=== PATIENT | male | born 1990 | race African-American/Black ===

== ENCOUNTER 2019-04-09 04:03 | Emergency (ER) | payer SELFPAY ==
[~2019-04-09] VITALS: Ht 180.3 cm; Wt 65.8 kg
--- OUTSIDE RECORDS SUMMARY | 2019-04-09 04:06 | XMS REPORT | Summary of Care ---
Author Author [facility] Organization [facility] Address Unknown Phone Unavailable Care Team Providers Care Agent Broker Name Role Phone Laurel Hemphill PCP Encounter HQ Scarlettr_shila(FIN) [phone] Date(s): 03/17/19 - 03/17/19 [facility] [address] [place] [address]- Discharge Disposition: Home or Self Care Attending Physician: Physician, Non Associated MD Admitting Physician: Physician, Non Associated MD Vital Signs No data available for this section Problem List Condition Effective Dates Status Health Status Informant Bipolar Active disorder(Confirmed) Genital Active herpes(Confirmed) HIV Active disease(Confirmed) Hyperlipidemia(Confi Active rmed) Hypertension(Confirm Active ed) Insomnia(Confirmed) Active Allergies, Adverse Reactions, Alerts No Known Medication Allergies Medications No data available for this section Results Most recent to 1 oldest [Reference Range]: Lipase Lvl [[id number] unit/L unit/L] *LOW* (03/17/19 6:41 PM) Immunizations Given and Recorded Vaccine Date Status Refusal Reason Hx influenza vaccine-unspecified 04/01/17 Recorded Procedures Procedure Date Related Diagnosis Body Site Status Carpal tunnel decompression1 2012 Completed 1both hands Social History Social History Type Response Substance Abuse Use: None. Exercise Exercise duration: 0. Employment/School Status: Employed. 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 Alcohol Current, Type Liquor. Frequency: Daily. Last use: 12/26/18. Smoking Status Never smoker; Exposure to Tobacco Smoke None; Cigarette Smoking Last 365 Days No; Reg Smoking Cessation Counseling No entered on: 01/03/19 Assessment and Plan No data available for this section
--- OUTSIDE RECORDS SUMMARY | 2019-04-09 04:06 | XMS REPORT | Summary of Care ---
Author Author [facility] Organization [facility] Address Unknown Phone Unavailable Encounter HQ Joann(PATRICIA) [id number] Date(s): 01/03/19 - 01/06/19 [facility] [address] [place] [address]- [facility] [phone] Discharge Disposition: Home or Self Care Attending Physician: Emili Mott MD Admitting Physician: Emili Mott MD Vital Signs 1 2 3 Most recent to oldest [Reference Range]: 180.34 cm (01/03/19 3:21 PM) 180.34 cm (01/03/19 7:51 AM) Height 98.1 DegF (01/06/19 3:59 PM) 98.5 DegF (01/06/19 12:08 PM) 98.2 DegF (01/06/19 7:34 AM) Temperature Oral [96.4-99.1 DegF] 133/83 mmHg (01/06/19 3:59 PM) 151/96 mmHg *HI* (01/06/19 12:08 PM) 144/90 mmHg *HI* (01/06/19 7:34 AM) Blood Pressure [90-140/60-90 mmHg] 17 BRMIN (01/06/19 3:59 PM) 17 BRMIN (01/06/19 12:08 PM) 16 BRMIN (01/06/19 7:44 AM) Respiratory Rate [14-20 BRMIN] 86 bpm (01/06/19 3:59 PM) 95 bpm (01/06/19 12:08 PM) 93 bpm (01/06/19 7:34 AM) Peripheral Pulse Rate [60-100 bpm] 66.932 kg (01/03/19 3:21 PM) 64.091 kg (01/03/19 7:51 AM) Weight 20.58 m2 (01/03/19 3:21 PM) 19.71 m2 (01/03/19 7:51 AM) Body Mass Index Problem List Condition Effective Dates Status Health Status Informant Bipolar Active disorder(Confirmed) Genital Active herpes(Confirmed) HIV Active disease(Confirmed) Hyperlipidemia(Confi Active rmed) Hypertension(Confirm Active ed) Insomnia(Confirmed) Active Allergies, Adverse Reactions, Alerts No Known Medication Allergies Medications acetaminophen 650 mg, 2 tab, Route: PO, Drug form: TAB, Q4H, Dosing Weight 64.091, kg, PRN Sheila n 1-3/Temp > 100.4 F, Start date: 01/03/19 13:41:00 CDT, Duration: 30 day, Stop date: 02/02/19 13:40:00 CDT Notes: Do not exceed 4 gm/day. (Same as: Tylenol) Start Date: 01/03/19 Stop Date: 01/06/19 Status: Discontinued Ambien 5 mg, 1 tab, Route: PO, Drug form: TAB, ONCE, Dosing Weight 66.932, kg, Start da te: 01/03/19 22:50:00 CDT, Stop date: 01/03/19 22:50:00 CDT Notes: (Same As: Ambien) Start Date: 01/03/19 Stop Date: 01/03/19 Status: Completed Ambien 10 mg oral tablet 10 mg=1 tab, PO, Bedtime, 0 Refill(s) Start Date: 01/03/19 Status: Ordered Bentyl 20 mg=1 cap, PO, QID, PRN Abdominal cramping, # 40 cap, 0 Refill(s) Start Date: 01/03/19 Stop Date: 01/06/19 Status: Discontinued calcium gluconate + Sodium Chloride 0.9% IV 70 mL 3 gm, 30 mL, Route: IVPB, PRN, Dosing Weight 64.091, kg, PRN Abnormal Lab Result , For NON-ICU Patients Only., Start date: 01/03/19 13:43:00 CDT, Duration: 30 da y, Stop date: 02/02/19 13:42:00 CDT Notes: WASTE: F/P - Sink; E - Municipal Trash Bin Start Date: 01/03/19 Stop Date: 01/06/19 Status: Discontinued calcium gluconate + Sodium Chloride 0.9% IV 80 mL 2 gm, 20 mL, Route: IVPB, PRN, Dosing Weight 64.091, kg, PRN Abnormal Lab Result , For NON-ICU Patients Only., Start date: 01/03/19 13:43:00 CDT, Duration: 30 da y, Stop date: 02/02/19 13:42:00 CDT Notes: WASTE: F/P - Sink; E - Municipal Trash Bin Start Date: 01/03/19 Stop Date: 01/06/19 Status: Discontinued ciprofloxacin 400 mg, 200 mL, Route: IVPB, Drug form: INJ, [id number], Dosing Weight 64.091, kg, Start date: 01/03/19 14:00:00 CDT, Duration: 10 day, Stop date: 01/13/19 2:00:00 CDT, ABX Indication: Intra-abdominal Infection Notes: Do not refrigerate Start Date: 01/03/19 Stop Date: 01/04/19 Status: Discontinued Dextrose 50% Syringe 12.5 gm, 25 mL, Route: IVP, Drug Form: INJ, Dosing Weight 64.091, kg, PRN, PRN B lood Glucose Results, Start date: 01/03/19 13:41:00 CDT, Duration: 30 day, Stop date: 02/02/19 13:40:00 CDT Start Date: 01/03/19 Stop Date: 01/06/19 Status: Discontinued Dextrose 50% Syringe 25 gm, 50 mL, Route: IVP, Drug Form: INJ, Dosing Weight 64.091, kg, PRN, PRN Blo od Glucose Results, Start date: 01/03/19 13:41:00 CDT, Duration: 30 day, Stop da te: 02/02/19 13:40:00 CDT Start Date: 01/03/19 Stop Date: 01/06/19 Status: Discontinued Dilaudid 0.5 mg, 0.5 mL, Route: IVP, Drug form: INJ, ONCE, Dosing Weight 66.932, kg, Prio rity: STAT, Start date: 01/03/19 20:14:00 CDT, Stop date: 01/03/19 20:14:00 CDT Notes: Same as: Dilaudid Start Date: 01/03/19 Stop Date: 01/03/19 Status: Completed Dilaudid 0.3 mg, 0.3 mL, Route: IVP, Drug form: INJ, Q4H, Dosing Weight 66.932, kg, PRN P ain Score 6-10, Start date: 01/04/19 0:54:00 CDT, Duration: 30 day, Stop date: 02/03/19 0:53:00 CDT Notes: Same as: Dilaudid Start Date: 01/04/19 Stop Date: 01/04/19 Status: Discontinued Dilaudid 0.5 mg, Route: IVP, ONCE, Dosing Weight 64.091, kg, Priority: STAT, Start date: 01/03/19 11:00:00 CDT, Stop date: 01/03/19 11:00:00 CDT Start Date: 01/03/19 Stop Date: 01/03/19 Status: Completed Dilaudid 1 mg, 1 mL, Route: IVP, Drug form: SOLN, Q4H, Dosing Weight 66.932, kg, PRN Pain Score 6-10, Start date: 01/04/19 9:51:00 CDT, Duration: 30 day, Stop date: 01/17 9:50:00 CDT Notes: (Same as: Dilaudid) Start Date: 01/04/19 Stop Date: 01/06/19 Status: Discontinued DuoNeb inhalation solution 3 ml, Route: NEB, Drug Form: SOLN, Dosing Weight 64.091, kg, PRN, PRN Respirator y Protocol, Start date: 01/03/19 13:41:00 CDT, Duration: 30 day, Stop date: 12/18 13:40:00 CDT Notes: (Same as: Duoneb) Start Date: 01/03/19 Stop Date: 01/06/19 Status: Discontinued Flagyl 500 mg, 100 mL, Route: IVPB, Drug form: INJ, [id number], Dosing Weight 64.091, kg, S tart date: 01/03/19 15:00:00 CDT, Duration: 10 day, Stop date: 01/13/19 7:00:00 CDT, ABX Indication: Intra-abdominal Infection Notes: (Same as: Flagyl) Avoid alcohol. Start Date: 01/03/19 Stop Date: 01/04/19 Status: Discontinued Genvoya 150 mg-150 mg-200 mg-10 mg oral tablet 1 tab, Route: PO, Drug Form: TAB, Dosing Weight 66.932, kg, Daily, Start date: 0 01/04/19 9:00:00 CDT, Duration: 30 day, Stop date: 02/02/19 9:00:00 CDT Start Date: 01/04/19 Stop Date: 01/03/19 Status: Deleted Genvoya 150/150/200/10mg pt's own med Genvoya 150/150/200/10mg pt's own med, 1 tablet, Drug form: MISC, Route: PO, Malissa ly, 01/04/19 9:00:00 CDT, Duration: 30 day, Stop date: 02/02/19 9:00:00 CDT Start Date: 01/04/19 Stop Date: 01/06/19 Status: Discontinued glucagon 1 mg, Route: IM, Drug form: PDR/INJ, PRN, Dosing Weight 64.091, kg, PRN Blood Gl ucose Results, Start date: 01/03/19 13:41:00 CDT, Duration: 30 day, Stop date: 0 02/02/19 13:40:00 CDT Start Date: 01/03/19 Stop Date: 01/06/19 Status: Discontinued hydrALAZINE 10 mg, 0.5 mL, Route: IVP, Drug form: INJ, Q6H, Dosing Weight 66.932, kg, PRN, S tart date: 01/03/19 16:11:00 CDT, Duration: 30 day, Stop date: 02/02/19 16:10:00 CDT, for HTN, SBP > 180 or DBP > 110 Notes: (Same as: Apresoline)Push over 5 minutes Start Date: 01/03/19 Stop Date: 01/06/19 Status: Discontinued Lactated Ringers IV 1,000 mL 1,000 mL, Rate: 125 ml/hr, Infuse over: 8 hr, Route: IV, Dosing Weight 66.932 kg , Total Volume: 1,000, Start date: 01/03/19 13:41:00 CDT, Duration: 30 day, Stop date: 02/02/19 13:40:00 CDT, 1.83, m2 Start Date: 01/03/19 Stop Date: 01/06/19 Status: Discontinued lisinopril 10 mg, 1 tab, Route: PO, Drug form: TAB, Daily, Dosing Weight 66.932, kg, Start date: 01/03/19 17:25:00 CDT, Duration: 30 day, Stop date: 02/02/19 9:00:00 CDT Notes: (Same as: Prinivlowell Zestril) Start Date: 01/03/19 Stop Date: 01/04/19 Status: Discontinued lisinopril 20 mg, 1 tab, Route: PO, Drug form: TAB, Daily, Dosing Weight 66.932, kg, Start date: 01/05/19 9:00:00 CDT, Duration: 30 day, Stop date: 02/03/19 9:00:00 CDT Notes: (Same as: Prinivil Zestril) Start Date: 01/05/19 Stop Date: 01/06/19 Status: Discontinued lisinopril 10 mg, PO, Daily, 0 Refill(s) Start Date: 01/03/19 Status: Ordered magnesium oxide 800 mg, 2 tab, Route: PO, Drug form: TAB, PRN, Dosing Weight 64.091, kg, PRN Abn ormal Lab Result, For NON-ICU Patients Only., Start date: 01/03/19 13:43:00 CDT, Duration: 30 day, Stop date: 02/02/19 13:42:00 CDT Notes: (Same as: Mag-Ox 400)Magnesium oxide 267oz=121uc elemental magnesiumDose= ____mg magnesium oxide (___mg elemental magnesium) Start Date: 01/03/19 Stop Date: 01/06/19 Status: Discontinued magnesium sulfate 2 gm, 50 mL, Route: IVPB, Drug form: INJ, PRN, Dosing Weight 64.091, kg, PRN Abn ormal Lab Result, For NON-ICU Patients Only., Start date: 01/03/19 13:43:00 CDT, Duration: 30 day, Stop date: 02/02/19 13:42:00 CDT Notes: WASTE: F/P - Sink; E - Municipal Trash Bin Start Date: 01/03/19 Stop Date: 01/06/19 Status: Discontinued magnesium sulfate 1 gm, 100 mL, Route: IVPB, Drug form: INJ, PRN, Dosing Weight 64.091, kg, PRN Ab normal Lab Result, For NON-ICU Patients Only., Start date: 01/03/19 13:43:00 CDT , Duration: 30 day, Stop date: 02/02/19 13:42:00 CDT Notes: WASTE: F/P - Sink; E - Municipal Trash Bin Start Date: 01/03/19 Stop Date: 01/06/19 Status: Discontinued meropenem 500 mg, Route: IVPB, Drug form: PDR/INJ, ABXQ6H, Dosing Weight 66.932, kg, CrCL >=50ml/min, Extended infusion, infuse over 3 hours, Start date: 01/04/19 16:00:00 CDT, Duration: 10 day, Stop date: 01/14/19 10:00:00 CDT, ABX Indication: Intra-abdomina... Start Date: 01/04/19 Stop Date: 01/04/19 Status: Canceled morphine Sulfate 2 mg, 1 mL, Route: IVP, Drug form: SOLN, Q4H, Dosing Weight 64.091, kg, PRN Pain Score 7-10, Start date: 01/03/19 16:11:00 CDT, Duration: 30 day, Stop date: 12/18 16:10:00 CDT, .. Start Date: 01/03/19 Stop Date: 01/04/19 Status: Discontinued morphine Sulfate 2 mg, 1 mL, Route: IVP, Drug form: SOLN, Q6H, Dosing Weight 64.091, kg, PRN Pain Score 7-10, Start date: 01/03/19 13:42:00 CDT, Duration: 30 day, Stop date: 12/18 13:41:00 CDT, .. Start Date: 01/03/19 Stop Date: 01/03/19 Status: Discontinued morphine Sulfate 4 mg, Route: IVP, ONCE, Dosing Weight 64.091, kg, Priority: STAT, Start date: 9:02:00 CDT, Stop date: 01/03/19 9:02:00 CDT Start Date: 01/03/19 Stop Date: 01/03/19 Status: Completed Ray 5/325 oral tablet 2 tab, Route: PO, Drug Form: TAB, Dosing Weight 66.932, kg, Q6H, PRN Pain Score 4-6, Start date: 01/06/19 12:00:00 CDT, Duration: 30 day, Stop date: 02/05/19 11 :59:00 CDT Notes: (Same as: Ray 325/5) Do not exceed 4gm/day of acetaminophen. Start Date: 01/06/19 Stop Date: 01/06/19 Status: Discontinued Ray 5/325 oral tablet 1 tab, Route: PO, Drug Form: TAB, Dosing Weight 66.932, kg, Q6H, PRN Pain Score 4-6, Start date: 01/04/19 9:44:00 CDT, Duration: 30 day, Stop date: 02/03/19 9:4 3:00 CDT Notes: (Same as: Ray 325/5) Do not exceed 4gm/day of acetaminophen. Start Date: 01/04/19 Stop Date: 01/06/19 Status: Discontinued NS (Bolus) IV 1,000 mL, 2,000 ml/hr, Infuse Over: 0.5 hr, Route: IV, ONCE, Priority: STAT, Dos ing Weight 64.091 kg, Start date: 01/03/19 9:03:00 CDT, Stop date: 01/03/19 9:03 :00 CDT Start Date: 01/03/19 Stop Date: 01/03/19 Status: Completed ondansetron 4 mg, 2 mL, Route: IVP, Drug form: INJ, Q8H, Dosing Weight 64.091, kg, PRN Nause a & Vomiting, Start date: 01/03/19 13:41:00 CDT, Duration: 30 day, Stop date: 02/02/19 13:40:00 CDT Notes: (Same as: Kaye) MEDICATION WASTE Product Size: 4 mgProduct Was carlos: ___ mg Start Date: 01/03/19 Stop Date: 01/06/19 Status: Discontinued potassium chloride 20 mEq, 1 tab, Route: PO, Drug form: ERTAB, PRN, Dosing Weight 64.091, kg, PRN A bnormal Lab Result, For NON-ICU Patients Only, Start date: 01/03/19 13:43:00 CDT , Duration: 30 day, Stop date: 02/02/19 13:42:00 CDT Notes: (Same as: K-Dur 20)"Do Not Crush" Give with food and full glass of water For patients unable to swallow tablet, dissolve in one half glass of water. Allo w about 2 minutes for the tablets to disintegrate. Stir before giving to prepare slurry and administer.Please exclude Patients with feeding tube less than 14 Ukrainian (Dobhoff, J-tube etc) and pediatric and patients. Start Date: 01/03/19 Stop Date: 01/06/19 Status: Discontinued potassium chloride 20 mEq, 15 mL, Route: NJ, Drug form: LIQ, PRN, Dosing Weight 64.091, kg, PRN Abn ormal Lab Result, For NON-ICU Patients Only, Start date: 01/03/19 13:43:00 CDT, Duration: 30 day, Stop date: 02/02/19 13:42:00 CDT Notes: (Same as: Potassium Chloride) Start Date: 01/03/19 Stop Date: 01/06/19 Status: Discontinued potassium chloride 10 mEq, 100 mL, Route: IVPB, Drug form: INJ, PRN, Dosing Weight 64.091, kg, PRN Abnormal Lab Result, For NON-ICU Patients Only, Start date: 01/03/19 13:43:00 CD T, Duration: 30 day, Stop date: 02/02/19 13:42:00 CDT Notes: Infuse at a rate of 10 mEq/hr.(Same as: KCL) Start Date: 01/03/19 Stop Date: 01/06/19 Status: Discontinued potassium chloride 10 mEq, 100 mL, Route: IVPB, Drug form: INJ, Q1H, Dosing Weight 66.932, kg, Tota l Dose=60 meq, Start date: 01/04/19 6:00:00 CDT, Duration: 6 doses or times, Sto p date: 01/04/19 11:00:00 CDT, Peripheral Line Notes: Infuse at a rate of 10 mEq/hr.(Same as: KCL) Start Date: 01/04/19 Stop Date: 01/04/19 Status: Completed potassium phosphate + Sodium Chloride 0.9% IV 240 mL 30 mmol, 10 mL, Route: IVPB, PRN, Dosing Weight 64.091, kg, PRN Abnormal Lab Res ult, For NON-ICU Patients Only., Start date: 01/03/19 13:43:00 CDT, Duration: 30 day, Stop date: 02/02/19 13:42:00 CDT Notes: (Same as: K Phosphate.)Do not infuse phosphorous concurrently in the same line as TPN or IVF that contains calcium. For double lumen central lines, phosp horous may be infused in a separate lumen from TPN. 1 mMol phoshate has 1.47 mE q potassium Infuse over 4 hours Start Date: 01/03/19 Stop Date: 01/06/19 Status: Discontinued potassium phosphate + Sodium Chloride 0.9% IV 245 mL 15 mmol, 5 mL, Route: IVPB, PRN, Dosing Weight 64.091, kg, PRN Abnormal Lab Resu lt, For NON-ICU Patients Only., Start date: 01/03/19 13:43:00 CDT, Duration: 30 day, Stop date: 02/02/19 13:42:00 CDT Notes: (Same as: K Phosphate.)Do not infuse phosphorous concurrently in the same line as TPN or IVF that contains calcium. For double lumen central lines, phosp horous may be infused in a separate lumen from TPN. 1 mMol phoshate has 1.47 mE q potassium Infuse over 4 hours Start Date: 01/03/19 Stop Date: 01/06/19 Status: Discontinued potassium phosphate-sodium phosphate 250 mg-280 mg-160 mg oral powder for recons titution 2 pkt, Route: PO, Drug Form: PDR/REC, Dosing Weight 64.091, kg, PRN, PRN Abnorma l Lab Result, For NON-ICU Patients Only, Start date: 01/03/19 13:43:00 CDT, Dura tion: 30 day, Stop date: 02/02/19 13:42:00 CDT Notes: (Same as: Phos-NaK) Each 1.5 gm pkt has 250mg phosphorous. Mix w/2.5oz w ater and stir. Start Date: 01/03/19 Stop Date: 01/06/19 Status: Discontinued Reglan 10 mg, Route: IVP, Drug form: INJ, ONCE, Dosing Weight 64.091, kg, Priority: STA T, Start date: 01/03/19 10:46:00 CDT, Stop date: 01/03/19 10:46:00 CDT Start Date: 01/03/19 Stop Date: 01/03/19 Status: Completed Saline Flush 0.9% 10 mL, Route: IVP, Drug Form: INJ, Dosing Weight 64.091, kg, PRN, PRN Line Flush , Start date: 01/03/19 8:24:00 CDT, Duration: 30 day, Stop date: 02/02/19 8:23:0 0 CDT Notes: preservative free. Start Date: 01/03/19 Stop Date: 01/06/19 Status: Discontinued SEROquel 25 mg, 1 tab, Route: PO, Drug form: TAB, BID, Dosing Weight 66.932, kg, Start da te: 01/03/19 17:00:00 CDT, Duration: 30 day, Stop date: 02/02/19 9:00:00 CDT Notes: (Same as: SEROquel) Start Date: 01/03/19 Stop Date: 01/06/19 Status: Discontinued SEROquel 25 mg oral tablet 25 mg=1 tab, PO, BID, 0 Refill(s) Start Date: 01/03/19 Status: Ordered sodium phosphate + Dextrose 5% in Water IV 240 mL 30 mmol, 10 mL, Route: IVPB, PRN, Dosing Weight 64.091, kg, PRN Abnormal Lab Res ult, For NON-ICU Patients Only., Start date: 01/03/19 13:43:00 CDT, Duration: 30 day, Stop date: 02/02/19 13:42:00 CDT Notes: Infuse over 4 hour. Do not infuse phosphorous concurrently in the same li ne as TPN or IVF that contains calcium. For double lumen central lines, phosphor ous may be infused in a separate lumen from TPN. Start Date: 01/03/19 Stop Date: 01/06/19 Status: Discontinued sodium phosphate + Dextrose 5% in Water IV 245 mL 15 mmol, 5 mL, Route: IVPB, PRN, Dosing Weight 64.091, kg, PRN Abnormal Lab Resu lt, For NON-ICU Patients Only., Start date: 01/03/19 13:43:00 CDT, Duration: 30 day, Stop date: 02/02/19 13:42:00 CDT Notes: Infuse over 4 hour. Do not infuse phosphorous concurrently in the same li ne as TPN or IVF that contains calcium. For double lumen central lines, phosphor ous may be infused in a separate lumen from TPN. Start Date: 01/03/19 Stop Date: 01/06/19 Status: Discontinued tramadol 50 mg oral tablet 50 mg, 1 tab, Route: PO, Drug form: TAB, Q6H, Dosing Weight 64.091, kg, PRN Pain Score 4-6, Start date: 01/03/19 13:42:00 CDT, Duration: 30 day, Stop date: 12/18 13:41:00 CDT Notes: Not to exceed 400mg/day. (Same As: Ultram) Start Date: 01/03/19 Stop Date: 01/06/19 Status: Discontinued tramadol 50 mg oral tablet 50 mg, 1 tab, Route: PO, Drug form: TAB, Q6H, Dosing Weight 66.932, kg, Start da te: 01/04/19 12:00:00 CDT, Duration: 30 day, Stop date: 02/03/19 6:00:00 CDT Start Date: 01/04/19 Stop Date: 01/04/19 Status: Canceled Tylenol with Codeine #3 oral tablet 1 tab, PO, Q6H, PRN Pain, X 7 day, # 28 tab, 0 Refill(s) Start Date: 01/06/19 Stop Date: 01/13/19 Status: Ordered Zofran 4 mg, Route: IVP, Drug form: INJ, ONCE, Dosing Weight 64.091, kg, Priority: STAT , Start date: 01/03/19 9:03:00 CDT, Stop date: 01/03/19 9:03:00 CDT Start Date: 01/03/19 Stop Date: 01/03/19 Status: Completed Results 1 2 3 Most recent to oldest [Reference Range]: 2.5 K/CMM (01/06/19 3:19 AM) 4.2 K/CMM (01/05/19 3:33 AM) 4.8 K/CMM (01/04/19 3:41 AM) Neutrophils # [1.5-8.1 K/CMM] 1.0 K/CMM (01/06/19 3:19 AM) 0.9 K/CMM *LOW* (01/05/19 3:33 AM) 0.9 K/CMM *LOW* (01/04/19 3:41 AM) Lymphocytes # [1.0-5.5 K/CMM] 0.9 K/CMM *HI* (01/06/19 3:19 AM) 1.0 K/CMM *HI* (01/05/19 3:33 AM) 1.0 K/CMM *HI* (01/04/19 3:41 AM) Monocytes # [0.0-0.8 K/CMM] 0.1 K/CMM (01/03/19 8:43 AM) Eosinophils # [0.0-0.5 K/CMM] 148 mL/min/1.73m2 1 *NA* (01/06/19 3:19 AM) 151 mL/min/1.73m2 2 *NA* (01/05/19 3:33 AM) 147 mL/min/1.73m2 3 *NA* (01/04/19 3:41 AM) eGFR 0.7 (01/03/19 8:43 AM) A/G Ratio [0.7-1.6] 3.2 g/dL *LOW* (01/03/19 8:43 AM) Albumin Lvl [3.5-5.0 g/dL] 40 unit/L (01/03/19 8:43 AM) Alk Phos [39-136 unit/L] 22 unit/L (01/03/19 8:43 AM) ALT [0-65 unit/L] 12.4 mEq/L (01/06/19 3:19 AM) 11.6 mEq/L (01/05/19 3:33 AM) 12.9 mEq/L (01/04/19 3:41 AM) AGAP [10.0-20.0 mEq/L] 34 unit/L (01/03/19 8:43 AM) AST [0-37 unit/L] 4 *LOW* (01/03/19 8:43 AM) B/C Ratio [6-25] 1.0 % (01/06/19 3:19 AM) 0.3 % (01/05/19 3:33 AM) 0.2 % (01/04/19 3:41 AM) Basophils [0.0-1.0 %] 4 mg/dL *LOW* (01/06/19 3:19 AM) 4 mg/dL *LOW* (01/05/19 3:33 AM) 2 mg/dL *LOW* (01/04/19 3:41 AM) BUN [7-22 mg/dL] 9.0 mg/dL (01/06/19 3:19 AM) 9.0 mg/dL (01/05/19 3:33 AM) 8.6 mg/dL (01/04/19 3:41 AM) Calcium Lvl [8.5-10.5 mg/dL] 104 mEq/L (01/06/19 3:19 AM) 102 mEq/L (01/05/19 3:33 AM) 103 mEq/L (01/04/19 3:41 AM) Chloride Lvl [95-109 mEq/L] 29 mEq/L (01/06/19 3:19 AM) 30 mEq/L (01/05/19 3:33 AM) 29 mEq/L (01/04/19 3:41 AM) CO2 [24-32 mEq/L] 0.72 mg/dL (01/06/19 3:19 AM) 0.68 mg/dL (01/05/19 3:33 AM) 0.72 mg/dL (01/04/19 3:41 AM) Creatinine Lvl [0.50-1.40 mg/dL] 0.9 % (01/06/19 3:19 AM) 0.5 % (01/05/19 3:33 AM) 0.7 % (01/04/19 3:41 AM) Eosinophils [0.0-4.0 %] 4.8 g/dL *HI* (01/03/19 8:43 AM) Globulin [2.7-4.2 g/dL] 62 mg/dL *LOW* (01/06/19 3:19 AM) 92 mg/dL (01/05/19 3:33 AM) 87 mg/dL (01/04/19 3:41 AM) Glucose Lvl [70-99 mg/dL] 34.5 % *LOW* (01/06/19 3:19 AM) 33.2 % *LOW* (01/05/19 3:33 AM) 31.6 % *LOW* (01/04/19 3:41 AM) Hct [42.0-54.0 %] 12.0 g/dL *LOW* (01/06/19 3:19 AM) 11.9 g/dL *LOW* (01/05/19 3:33 AM) 11.2 g/dL *LOW* (01/04/19 3:41 AM) Hgb [14.0-18.0 g/dL] 3.4 mEq/L *LOW* (01/06/19 3:19 AM) 3.6 mEq/L (01/05/19 3:33 AM) 3.3 mEq/L *LOW* (01/04/19 7:47 PM) Potassium Lvl [3.5-5.1 mEq/L] 1.0 mMol/L (01/03/19 8:43 AM) Lactic Acid Lvl [0.5-2.2 mMol/L] 166 unit/L (01/03/19 8:43 AM) Lipase Lvl [73-393 unit/L] 23.2 % (01/06/19 3:19 AM) 14.9 % *LOW* (01/05/19 3:33 AM) 13.2 % *LOW* (01/04/19 3:41 AM) Lymphocytes [20.0-40.0 %] 32.1 pg *HI* (01/06/19 3:19 AM) 32.6 pg *HI* (01/05/19 3:33 AM) 32.2 pg *HI* (01/04/19 3:41 AM) MCH [27.0-31.0 pg] 34.9 g/dL (01/06/19 3:19 AM) 35.7 g/dL (01/05/19 3:33 AM) 35.3 g/dL (01/04/19 3:41 AM) MCHC [32.0-36.0 g/dL] 92.0 fL (01/06/19 3:19 AM) 91.3 fL (01/05/19 3:33 AM) 91.3 fL (01/04/19 3:41 AM) MCV [80.0-94.0 fL] 1.9 mg/dL (01/06/19 3:19 AM) 1.9 mg/dL (01/05/19 3:33 AM) 1.9 mg/dL (01/04/19 3:41 AM) Magnesium Lvl [1.8-2.4 mg/dL] 19.6 % *HI* (01/06/19 3:19 AM) 15.9 % *HI* (01/05/19 3:33 AM) 14.5 % *HI* (01/04/19 3:41 AM) Monocytes [2.0-12.0 %] 6.8 fL *LOW* (01/06/19 3:19 AM) 6.7 fL *LOW* (01/05/19 3:33 AM) 6.6 fL *LOW* (01/04/19 3:41 AM) MPV [7.4-10.4 fL] 142 mEq/L (01/06/19 3:19 AM) 140 mEq/L (01/05/19 3:33 AM) 142 mEq/L (01/04/19 3:41 AM) Sodium Lvl [135-145 mEq/L] 786 K/CMM *HI* (01/06/19 3:19 AM) 655 K/CMM *HI* (01/05/19 3:33 AM) 523 K/CMM *HI* (01/04/19 3:41 AM) Platelet [133-450 K/CMM] 55.3 % (01/06/19 3:19 AM) 68.4 % (01/05/19 3:33 AM) 71.4 % (01/04/19 3:41 AM) Segs [45.0-75.0 %] 8.0 g/dL (01/03/19 8:43 AM) Total Protein [6.4-8.4 g/dL] 3.75 M/CMM *LOW* (01/06/19 3:19 AM) 3.64 M/CMM *LOW* (01/05/19 3:33 AM) 3.46 M/CMM *LOW* (01/04/19 3:41 AM) RBC [4.70-6.10 M/CMM] 13.9 % (01/06/19 3:19 AM) 13.7 % (01/05/19 3:33 AM) 13.9 % (01/04/19 3:41 AM) RDW [11.5-14.5 %] 0.6 mg/dL (01/03/19 8:43 AM) Bili Total [0.2-1.3 mg/dL] 0.03 ng/mL (01/03/19 8:43 AM) Troponin-I [0.00-0.40 ng/mL] Occasional /HPF *NA* (01/03/19 8:43 AM) UA Bacteria [None Seen /HPF] Negative *NA* (01/03/19 8:43 AM) UA Bili [Negative] Negative (01/03/19 8:43 AM) UA Blood [Negative] STRAW *NA* (01/03/19 8:43 AM) UA Color Negative mg/dL *NA* (01/03/19 8:43 AM) UA Glucose [Negative mg/dL] Trace mg/dL *ABN* (01/03/19 8:43 AM) UA Ketones [Negative mg/dL] Negative (01/03/19 8:43 AM) UA Leuk Est [Negative] Negative (01/03/19 8:43 AM) UA Nitrite [Negative] 8.0 (01/03/19 8:43 AM) UA pH [5.0-8.0] Negative mg/dL (01/03/19 8:43 AM) UA Protein [Negative mg/dL] 1 /HPF (01/03/19 8:43 AM) UA RBC [0-2 /HPF] 1.003 (01/03/19 8:43 AM) UA Spec Grav [<=1.030] Occasional /LPF *NA* (01/03/19 8:43 AM) UA Sq Epi [Few /LPF] Clear (01/03/19 8:43 AM) UA Turbidity [Clear] <=1.0 mg/dL *NA* (01/03/19 8:43 AM) UA Urobilinogen [0.1-1.0 mg/dL] <1 /HPF (01/03/19 8:43 AM) UA WBC [0-5 /HPF] 4.5 K/CMM (01/06/19 3:19 AM) 6.2 K/CMM (01/05/19 3:33 AM) 6.7 K/CMM (01/04/19 3:41 AM) WBC [3.7-10.4 K/CMM] 1Result Comment: The eGFR is calculated using the CKD-EPI formula. In most young, healthy individuals the eGFR will be >90 mL/min/1.73m2. The eGFR declines with age. An eGFR of 60-89 may be normal in some populations, particularly the elderly, for whom the CKD-EPI formula has not been extensively validated. Use of the eGFR is not recommended in the following populations: Individuals with unstable creatinine concentrations, including patients and those with serious co-morbid conditions. Patients with extremes in muscle mass or diet. The data above are obtained from the [employer] ( [employer]) which additionally recommends that when the eGFR is used in patients with extremes of body mass index for purposes of drug dosing, the eGFR should be mul tiplied by the estimated BMI. 2Result Comment: The eGFR is calculated using the CKD-EPI formula. In most young, healthy individuals the eGFR will be >90 mL/min/1.73m2. The eGFR declines with age. An eGFR of 60-89 may be normal in some populations, particularly the elderly, for whom the CKD-EPI formula has not been extensively validated. Use of the eGFR is not recommended in the following populations: Individuals with unstable creatinine concentrations, including patients and those with serious co-morbid conditions. Patients with extremes in muscle mass or diet. The data above are obtained from the [employer] ( [employer]) which additionally recommends that when the eGFR is used in patients with extremes of body mass index for purposes of drug dosing, the eGFR should be mul tiplied by the estimated BMI. 3Result Comment: The eGFR is calculated using the CKD-EPI formula. In most young, healthy individuals the eGFR will be >90 mL/min/1.73m2. The eGFR declines with age. An eGFR of 60-89 may be normal in some populations, particularly the elderly, for whom the CKD-EPI formula has not been extensively validated. Use of the eGFR is not recommended in the following populations: Individuals with unstable creatinine concentrations, including patients and those with serious co-morbid conditions. Patients with extremes in muscle mass or diet. The data above are obtained from the National Kidney Disease Education Program ( NKDEP) which additionally recommends that when the eGFR is used in patients with extremes of body mass index for purposes of drug dosing, the eGFR should be mul tiplied by the estimated BMI. Immunizations Given and Recorded Vaccine Date Status Refusal Reason Hx influenza vaccine-unspecified 04/01/17 Recorded Procedures Procedure Date Related Diagnosis Body Site Status Carpal tunnel decompression2012 Completed 1both hands Social History Social History Type Response Substance Abuse Use: None. Exercise Exercise duration: 0. Employment/School Status: Employed. Work/School description: assisted administator. Alcohol Current, Type Liquor. Frequency: Daily. Last use: 12/26/18. Smoking Status Never smoker; Exposure to Tobacco Smoke None; Cigarette Smoking Last 365 Days No; Reg Smoking Cessation Counseling No entered on: 01/03/19 Assessment and Plan Extracted from: Title: Discharge Summary * Author: Emili Mott MD Date: 01/06/19 Discharge Plan Discharge Summary Plan Discharge Status: stable. Discharge instructions given: to patient. Discharge disposition: discharge to home self care. Prescriptions: continue same medications, written and given to patient. Diagnosis Acute hypokalemia (MHG70-DZ E87.6, Working, Medical). Alcohol induced acute pancreatitis with uninfected necrosis (WGB46-MQ K85.21, Working, Medical). Anemia of chronic disease (KNE15-BF D63.8, Working, Medical). HIV disease (JXS94-WB B20, Working, Medical). Pancreatic necrosis (KEB04-IM K86.89, Working, Medical). Course Improving. Education and Follow-up Counseled: patient. Extracted from: Title: [facility] Progress Note * Author: Emili Mott MD Date: 01/06/19 Impression and Plan Assessment: Acute pancreatitis likely secondary to alcohol use Possible pancreatic neck necrosis History of HIV Hypertension History of alcohol abuse Hypokalemia Plan: Continue soft diet IV fluid hydration PRN pain medications PRN antiemetics Continue home HIV medications No need for antibiotics for possible pancreatic necrosis as per ID recommendations ID consult appreciated GI consultation appreciated DVT prophylaxis: Heparin subcutaneous Disposition: Continue current management follow clinical course; possible discharge the next day or so Extracted from: Title: Clinical Document Author: Kenny Sunshine MD Date: 01/03/19 INFECTIOUS DISEASES CONSULTATION NOTE Kenny Sunshine M.D. Attending: Kenny Aguilar MDPhone: Service: Internal Medicine Code status: Full Code Reason for Admission: ALCOHOL INDUCED ACUTE PANCREATITIS WITH UNINFECTED NECR Working DRG: Isolation: No Isolation/Standard Precautions Consulting Physicians: Felix Peng MDOffice: Service: Gastroenterology Kenny Sunshine MDOffice: Service: Infectious Disease HPI: 28-year-old -Honduran with known past medical history significant for HIV as well as alcoholic pancreatitis who presented to [facility] with ongoing pain he was recently admitted at [facility]. He was just discharged from the hospital recently further work-up in the ER showed a temp of 98.8 and diffuse abdominal pain more towards the right side. Creatinine was 0.75 white count 6.7 lactic acid 1.0 urinalysis was negative diagnostic studies so far CT abdomen and pelvis showed findings consistent with acute pancreatitis without organized drainable fluid poorly circumscribed hypodensity is seen within the pancreatic head and body which could represent pancreatic necrosis. Trace ascites. Infectious disease consultation was called in to give recommendation. PAST MEDICAL HISTORY: HIV pancreatitis. SURGICAL HISTORY: Carpal tunnel decompression: 2013 FAMILY HISTORY: Father: Hypertension Mother: Hypertension Grandparent (Maternal Grandmother): Hypertension Allergies (1) ActiveReaction No Known Medication AllergiesNone documented SOCIAL HISTORY: Employment/School Details: Status: Employed. Work/School description: assisted administator. Alcohol Details: Current, Type Liquor. Frequency: Daily. Last use: 12/26/18. Exercise Details: Exercise duration: 0. Tobacco Details: Use: Never smoker. Tobacco smoke exposure: None. Did the Patient Smoke Cigarettes Anytime During the Last 365 Days? No. Cessation Counseling Provided? No. Substance Abuse Details: Use: None. ROS: GENERAL: No change in appetite, energy or weight. No fever, chills or sweats. HEENT: No auditory or visual complaints. No tinnitus. No pharyngeal complaints RESPIRATORY: [place], SOB. CARDIOVASCULAR: No chest pain or pressure. No palpitations GASTROINTESTINAL: Abdominal pain. heartburn, diarrhea or constipation. No nausea or vomiting. MUSCULOSKELETAL: No myalgias, arthralgias, joint swelling. NEUROLOGICAL: No vertigo or disturbance of balance or coordination.No motor or sensory complaints. No headache. GENITOURINARY: No dysuria, urgency or urinary frequency. No incontinence. DERMATOLOGIC: No complaint of skin lesions or rashes. No change MEDICATIONS: Scheduled Meds (5): 01/03/19 QUEtiapine (SEROquel) 25 mg PO BID 01/03/19 ciprofloxacin 400 mg IVPB [id number] 200 ml/hr 01/03/19 lisinopril 10 mg PO Daily 01/03/19 metroNIDAZOLE (Flagyl) 500 mg IVPB [id number] 200 ml/hr 01/04/19 non-formulary (Genvoya 150/150/200/10mg pt's own med) PO Daily VITAL SIGNS: VitalsTmp(F)[id number] 01/03 22:[id number]--- 01/03 20:31 21% 01/03 19:[id number]--- 01/03 15:[id number]--- 01/03 15:47 00610 21% 24 Hr Tmax: 98.8F (37.11c) at 01/03 22:40Vital Signs are the last 5 in the past 48 hours. PHYSICAL EXAMINATION: GENERAL: Well-developed, well-nourished in no apparent distress. SKIN: Warm and dry with good color. No rash. No tissue breakdown, bleeding or bruising. HEENT: Head is normocephalic and atraumatic. PERRLA, EOMI, NECK: Supple. No carotid bruits. No lymphadenopathy or thyromegaly. CHEST: Symmetrical with equal expansion. LUNGS: CTA HEART: RRR, no murmurs. . GASTROINTESTINAL: Bowel sounds positive. Abdominal pain right upper quadrant pain positive epigastric pain. EXTREMITIES: No edema or varicosities. Pulses 2+ symmetric. LABS: Labs (Last four charted values) WBC 6.7(JANUARY 03) Hgb L 11.6(JANUARY 03) Hct L 32.4(JANUARY 03) Plt 394(JANUARY 03) Na 140(JANUARY 03) K L 3.4(JANUARY 03) CO2 29(JANUARY 03) Cl 104(JANUARY 03) Cr 0.75(JANUARY 03) BUN L 3(JANUARY 03) Glucose Random 92(JANUARY 03) Ca 8.7(JANUARY 03) Troponin 0.03(JANUARY 03) CULTURES: DATE/SOURCE/RESULT/ SENSITIVITIES: IMAGING: ASSESSMENT AND PLAN: 28-year-old gentleman with 1. Pancreatitis. 2. Suspected pancreatic necrosis. 3. HIV. 4. Seizure disorder. RECOMMENDATIONS: As per infectious disease standpoint patient seen and evaluated. Currently patient is n.p.o. initiated on IV fluids. Continue aggressive hydration Resume HIV medication. We will continue to follow closely. We will continue to follow. Thank you for providing me the opportunity to take care of this patient. Extracted from: Title: History and Physical Author: Kenny Aguilar MD Date: 01/03/19 Assessment: Acute pancreatitis Concern for pancreatic necrosis versus abscess HIV Hypertension Alcohol abuse Hypokalemia Plan: Continue with aggressive IV fluid hydration at least today and then we will follow-up with gastroenterology recommendations. NPO status. CT scan noted with a concerning finding of possible abscess. Likely local complication of his acute pancreatitis. Involve infectious disease for that reason. Counseled extensively regarding alcohol abuse. Patient's last drink was around 8 days ago, will monitor for possible alcohol withdrawal however it has been more than a week. Discussed his HIV medications with infectious disease and gastroenterology as well for a possibility of September induced pancreatitis? Pain control as needed Antiemetics as needed Medication reconciliation DVT prophylaxis: Heparin subcutaneous Disposition: Likely 2 midnights or more
--- OUTSIDE RECORDS SUMMARY | 2019-04-09 04:06 | XMS REPORT | Summary of Care ---
Author Author [facility] Organization [facility] Address Unknown Phone Unavailable Encounter HQ Joann(FIN) [id number] Date(s): 11/27/18 - 11/27/18 [facility] [address] [place] [address]- [phone] Encounter Diagnosis Acute psychosis (resolved) (Discharge Diagnosis) - 11/27/18 Discharge Disposition: Home or Self Care Attending Physician: Kaur Gold MD Vital Signs 1 2 3 Most recent to oldest [Reference Range]: 172.72 cm (11/27/18 2:40 AM) Height 98.2 DegF (11/27/18 7:22 PM) 98 DegF (11/27/18 3:38 PM) 98 DegF (11/27/18 1:36 PM) Temperature Oral [96.4-99.1 DegF] 156/82 mmHg *HI* (11/27/18 7:22 PM) 144/72 mmHg *HI* (11/27/18 3:38 PM) 136/78 mmHg (11/27/18 1:36 PM) Blood Pressure [90-140/60-90 mmHg] 18 BRMIN (11/27/18 7:22 PM) 19 BRMIN (11/27/18 3:38 PM) 18 BRMIN (11/27/18 1:36 PM) Respiratory Rate [14-20 BRMIN] 102 bpm *HI* (11/27/18 7:03 AM) 92 bpm (11/27/18 2:40 AM) Peripheral Pulse Rate [60-100 bpm] 70.455 kg (11/27/18 2:40 AM) Weight 23.62 m2 (11/27/18 2:40 AM) Body Mass Index Problem List Condition Effective Dates Status Health Status Informant Bipolar Active disorder(Confirmed) Genital Active herpes(Confirmed) HIV Active disease(Confirmed) Hyperlipidemia(Confi Active rmed) Hypertension(Confirm Active ed) Insomnia(Confirmed) Active Allergies, Adverse Reactions, Alerts Substance Reaction Severity Status NKDA Active Medications Ativan 2 mg, Route: IVP, Drug form: INJ, ONCE, Dosing Weight 70.455, kg, Priority: STAT , Start date: 11/27/18 6:57:00 CDT, Stop date: 11/27/18 6:57:00 CDT Start Date: 11/27/18 Stop Date: 11/27/18 Status: Completed Benadryl 50 mg, 1 mL, Route: IVP, Drug form: INJ, ONCE, Dosing Weight 70.455, kg, Priorit y: STAT, Start date: 11/27/18 8:13:00 CDT, Stop date: 11/27/18 8:13:00 CDT Notes: (Same as: Benadryl) Start Date: 11/27/18 Stop Date: 11/27/18 Status: Completed Bentyl 20 mg oral tablet 20 mg=1 tab, PO, QID, PRN abdominal pain, # 20 tab, 0 Refill(s) Start Date: 11/27/18 Status: Ordered Geodon 10 mg, Route: IM, ONCE, Dosing Weight 70.455, kg, Priority: STAT, Start date: 6:04:00 CDT, Stop date: 11/27/18 6:04:00 CDT Start Date: 11/27/18 Stop Date: 11/27/18 Status: Completed Geodon 10 mg, Route: IM, ONCE, Dosing Weight 70.455, kg, Priority: STAT, Start date: 5:23:00 CDT, Stop date: 11/27/18 5:23:00 CDT Start Date: 11/27/18 Stop Date: 11/27/18 Status: Completed Haldol 5 mg, Route: IM, ONCE, Dosing Weight 70.455, kg, Priority: STAT, Start date: 4:38:00 CDT, Stop date: 11/27/18 4:38:00 CDT Start Date: 11/27/18 Stop Date: 11/27/18 Status: Completed SEROquel 25 mg oral tablet 25 mg=1 tab, PO, BID, # 20 tab, 0 Refill(s) Start Date: 11/27/18 Status: Ordered Results ELECTROLYTES Most recent to 1 oldest [Reference Range]: Sodium Lvl [135-145 139 mEq/L mEq/L] (11/27/18 3:55 AM) Potassium Lvl 3.4 mEq/L [3.5-5.1 mEq/L] *LOW* (11/27/18 3:55 AM) Chloride Lvl [95-109 99 mEq/L mEq/L] (11/27/18 3:55 AM) CO2 [24-32 mEq/L] 31 mEq/L (11/27/18 3:55 AM) AGAP [10.0-20.0 12.4 mEq/L mEq/L] (11/27/18 3:55 AM) CHEM PANEL Most recent to 1 oldest [Reference Range]: Creatinine Lvl 1.12 mg/dL [0.50-1.40 mg/dL] (11/27/18 3:55 AM) eGFR 104 mL/min/1.73m2 1 *NA* (11/27/18 3:55 AM) BUN [7-22 mg/dL] 15 mg/dL (11/27/18 3:55 AM) B/C Ratio [6-25] 13 (11/27/18 3:55 AM) Glucose Lvl [70-99 127 mg/dL mg/dL] *HI* (11/27/18 3:55 AM) Total Protein 9.2 g/dL [6.4-8.4 g/dL] *HI* (11/27/18 3:55 AM) Albumin Lvl [3.5-5.0 4.9 g/dL g/dL] (11/27/18 3:55 AM) Globulin [2.7-4.2 4.3 g/dL g/dL] *HI* (11/27/18 3:55 AM) A/G Ratio [0.7-1.6] 1.1 (11/27/18 3:55 AM) Calcium Lvl 9.5 mg/dL [8.5-10.5 mg/dL] (11/27/18 3:55 AM) ALT [0-65 unit/L] 18 unit/L (11/27/18 3:55 AM) AST [0-37 unit/L] 15 unit/L (11/27/18 3:55 AM) Alk Phos [39-136 55 unit/L unit/L] (11/27/18 3:55 AM) Bili Total [0.2-1.3 0.4 mg/dL mg/dL] (11/27/18 3:55 AM) 1Result Comment: The eGFR is calculated using [...] be mul tiplied by the estimated BMI. CARDIAC ENZYMES Most recent to 1 oldest [Reference Range]: Total CK [12-191 139 unit/L unit/L] (11/27/18 3:55 AM) Troponin-I <0.02 ng/mL [0.00-0.40 ng/mL] (11/27/18 3:55 AM) DRUG SCREEN Most recent to 1 oldest [Reference Range]: U Amph Scr Negative [Negative] *NA* (11/27/18 4:19 AM) U Tanya Scr Positive [Negative] *ABN* (11/27/18 4:19 AM) U Benzodiaz Scr Negative [Negative] *NA* (11/27/18 4:19 AM) U Cannab Scr Negative [Negative] *NA* (11/27/18 4:19 AM) U Cocaine Scr Negative [Negative] *NA* (11/27/18 4:19 AM) U Opiate Scr Positive [Negative] *ABN* (11/27/18 4:19 AM) U Phencyclidine Scr Negative [Negative] *NA* (11/27/18 4:19 AM) UDS Note See Note (11/27/18 4:19 AM) TOXICOLOGY Most recent to 1 oldest [Reference Range]: Acetaminoph Lvl <2 [10-20] (11/27/18 3:55 AM) Salicylate Lvl <1.7 mg/dL [0.0-30.0 mg/dL] (11/27/18 3:55 AM) Etoh (%) <.003 % *NA* (11/27/18 3:55 AM) Ethanol Lvl <3 mg/dL *NA* (11/27/18 3:55 AM) URINE AND STOOL Most recent to 1 oldest [Reference Range]: UA Turbidity [Clear] Clear (11/27/18 4:19 AM) UA Color [Yellow] Yellow *NA* (11/27/18 4:19 AM) UA pH [5.0-8.0] 5.0 (11/27/18 4:19 AM) UA Spec Grav 1.018 [<=1.030] (11/27/18 4:19 AM) UA Glucose Negative [Negative] *NA* (11/27/18 4:19 AM) UA Blood [Negative] Moderate *ABN* (11/27/18 4:19 AM) UA Ketones Negative *NA* (11/27/18 4:19 AM) UA Protein Negative [Negative] (11/27/18 4:19 AM) UA Urobilinogen <=1.0 mg/dL [0.1-1.0 mg/dL] *NA* (11/27/18 4:19 AM) UA Bili [Negative] Negative *NA* (11/27/18 4:19 AM) UA Leuk Est Negative [Negative] (11/27/18 4:19 AM) UA Nitrite Negative [Negative] (11/27/18 4:19 AM) UA WBC [0-5 /HPF] 2 /HPF (11/27/18 4:19 AM) UA RBC [0-2 /HPF] <1 /HPF (11/27/18 4:19 AM) UA Sq Epi [Few] None Seen (11/27/18 4:19 AM) UA Hyal Cast [0-2 12 /LPF /LPF] *HI* (11/27/18 4:19 AM) UA Mucus [None Seen Few /LPF /LPF] *NA* (11/27/18 4:19 AM) HEMATOLOGY Most recent to 1 oldest [Reference Range]: WBC [3.7-10.4 K/CMM] 8.1 K/CMM (11/27/18 3:55 AM) RBC [4.70-6.10 4.79 M/CMM M/CMM] (11/27/18 3:55 AM) Hgb [14.0-18.0 g/dL] 15.3 g/dL (11/27/18 3:55 AM) Hct [42.0-54.0 %] 45.0 % (11/27/18 3:55 AM) MCV [80.0-94.0 fL] 94.0 fL (11/27/18 3:55 AM) MCH [27.0-31.0 pg] 32.0 pg *HI* (11/27/18 3:55 AM) MCHC [32.0-36.0 34.1 g/dL g/dL] (11/27/18 3:55 AM) RDW [11.5-14.5 %] 13.1 % (11/27/18 3:55 AM) MPV [7.4-10.4 fL] 6.8 fL *LOW* (11/27/18 3:55 AM) Platelet [133-450 338 K/CMM K/CMM] (11/27/18 3:55 AM) Segs [45.0-75.0 %] 82.7 % *HI* (11/27/18 3:55 AM) Lymphocytes 9.7 % [20.0-40.0 %] *LOW* (11/27/18 3:55 AM) Monocytes [2.0-12.0 7.3 % %] (11/27/18 3:55 AM) Eosinophils [0.0-4.0 0.1 % %] (11/27/18 3:55 AM) Basophils [0.0-1.0 0.2 % %] (11/27/18 3:55 AM) Neutrophils # 6.7 K/CMM [1.5-8.1 K/CMM] (11/27/18 3:55 AM) Lymphocytes # 0.8 K/CMM [1.0-5.5 K/CMM] *LOW* (11/27/18 3:55 AM) Monocytes # [0.0-0.8 0.6 K/CMM K/CMM] (11/27/18 3:55 AM) Immunizations Given and Recorded Vaccine Date Status Refusal Reason Hx influenza vaccine-unspecified 04/01/17 Recorded Procedures Procedure Date Related Diagnosis Body Site Status Carpal tunnel decompression1 2012 Completed 1both hands Social History Social History Type Response Substance Abuse Use: None. Exercise Exercise duration: 0. Employment/School Status: Employed. Work/School description: retirement administator. Alcohol Current, Type Liquor. Frequency: Daily. Smoking Status Never smoker; Exposure to Tobacco Smoke None; Cigarette Smoking Last 365 Days No; Reg Smoking Cessation Counseling No entered on: 11/27/18 Assessment and Plan No data available for this section
--- OUTSIDE RECORDS SUMMARY | 2019-04-09 04:06 | XMS REPORT | Summary of Care ---
Author Author [facility] Organization [facility] Address Unknown Phone Unavailable Care Team Providers Care Glass Mold Repairer Name Role Phone Laurel Hemphill PCP Encounter HQ Joann([facility]) [id number] Date(s): 08/22/18 - 08/22/18 [facility] [address] [place] [address]- U [phone] Encounter Diagnosis Opiate withdrawal (Discharge Diagnosis) - 08/22/18 Opioid dependence with withdrawal (Final) - 08/30/18 Bipolar disorder, unspecified (Final) - Human immunodeficiency virus [HIV] disease (Final) - Hyperlipidemia, unspecified (Final) - Essential (primary) hypertension (Final) - Other computer terminal operator (current) drug therapy (Final) - Discharge Disposition: Home or Self Care Attending Physician: Taiwo Sweeney DO Vital Signs 1 2 3 Most recent to oldest [Reference Range]: 180.34 cm (08/22/18 9:53 PM) Height 98.2 DegF (08/22/18 11:29 PM) 98 DegF (08/22/18 9:53 PM) Temperature Oral [96.4-99.1 DegF] 139/89 mmHg (08/22/18 11:29 PM) 124/73 mmHg (08/22/18 10:30 PM) 158/97 mmHg *HI* (08/22/18 9:53 PM) Blood Pressure [90-140/60-90 mmHg] 17 BRMIN (08/22/18 11:29 PM) 17 BRMIN (08/22/18 10:30 PM) 18 BRMIN (08/22/18 9:53 PM) Respiratory Rate [14-20 BRMIN] 118 bpm *HI* (08/22/18 11:29 PM) 127 bpm *HI* (08/22/18 10:30 PM) 122 bpm *HI* (08/22/18 9:53 PM) Peripheral Pulse Rate [60-100 bpm] 65.909 kg (08/22/18 9:53 PM) Weight 20.27 m2 (08/22/18 9:53 PM) Body Mass Index Problem List Condition Effective Dates Status Health Status Informant Bipolar Active disorder(Confirmed) Genital Active herpes(Confirmed) HIV Active disease(Confirmed) Hyperlipidemia(Confi Active rmed) Hypertension(Confirm Active ed) Insomnia(Confirmed) Active Allergies, Adverse Reactions, Alerts No Known Medication Allergies Medications cloNIDine 0.2 mg, 2 tab, Route: PO, Drug form: TAB, ONCE, Dosing Weight 65.909, kg, Priori ty: STAT, Start date: 08/22/18 22:27:00 CHANGE HOUSE ATTENDANT, Stop date: 08/22/18 22:27:00 CHANGE HOUSE ATTENDANT Notes: (Same As: Cataprpedro) Start Date: 08/22/18 Stop Date: 08/22/18 Status: Completed cloNIDine 0.1 mg oral tablet 1-2 tab, PO, BID, PRN Agitation, # 15 tab, 0 Refill(s) Start Date: 08/22/18 Stop Date: 09/22/18 Status: Discontinued ondansetron 4 mg, 1 tab, Route: PO, Drug form: TABDIS, ONCE, Dosing Weight 65.909, kg, Prior ity: STAT, Start date: 08/22/18 22:15:00 CHANGE HOUSE ATTENDANT, Stop date: 08/22/18 22:15:00 CHANGE HOUSE ATTENDANT Notes: (Same as: Zofran ODT) Start Date: 08/22/18 Stop Date: 08/22/18 Status: Completed Sodium Chloride 0.9% (Bolus) IV 1,000 mL, 1000 ml/hr, Infuse Over: 1 hr, Route: IV, 1,000, Drug form: INJ, ONCE, Priority: STAT, Dosing Weight 65.909 kg, Start date: 08/22/18 22:25:00 CHANGE HOUSE ATTENDANT, Stop date: 08/22/18 22:25:00 CHANGE HOUSE ATTENDANT Start Date: 08/22/18 Stop Date: 08/22/18 Status: Completed Zofran 4 mg oral tablet 4 mg=1 tab, PO, BID, # 10 tab, 0 Refill(s) Start Date: 08/22/18 Stop Date: 09/22/18 Status: Discontinued Results No data available for this section Immunizations Given and Recorded Vaccine Date Status [...]
--- OUTSIDE RECORDS SUMMARY | 2019-04-09 04:06 | XMS REPORT | Summary of Care ---
Author Author [facility] Organization [facility] Address Unknown Phone Unavailable Encounter GATITO David(PATRICIA) [id number] Date(s): 02/03/18 - 02/03/18 [facility] [address], [address] [place] [address]- [phone] Discharge Disposition: Home or Self Care Attending Physician: Primo Leonardo MD Vital Signs Most recent to 1 oldest [Reference Range]: Height 180.34 cm (02/03/18 1:41 PM) Temperature Oral 98.1 DegF [96.4-99.1 DegF] (02/03/18 1:41 PM) Blood Pressure 151/93 mmHg [90-140/60-90 mmHg] *HI* (02/03/18 1:41 PM) Respiratory Rate 14 BRMIN [14-20 BRMIN] (02/03/18 1:41 PM) Peripheral Pulse 90 bpm Rate [60-100 bpm] (02/03/18 1:41 PM) Weight 61.534 kg (02/03/18 1:41 PM) Body Mass Index 18.92 m2 (02/03/18 1:41 PM) Problem List Condition Effective Dates Status Health Status Informant Bipolar Active disorder(Confirmed) Genital Active herpes(Confirmed) HIV Active disease(Confirmed) Hypertension(Confirm Active ed) Insomnia(Confirmed) Active Allergies, Adverse Reactions, Alerts Substance Reaction Severity Status NKDA Active Medications Ambien 10 mg oral tablet 10 mg=1 tab, PO, Bedtime, PRN for insomnia, # 30 tab, 3 Refill(s) Start Date: 02/03/18 Stop Date: 02/03/19 Status: Ordered Ambien 10 mg oral tablet 10 mg=1 tab, PO, Bedtime, PRN for insomnia, 0 Refill(s) Start Date: 02/03/18 Stop Date: 02/03/18 Status: Discontinued Depakote 250 mg oral enteric coated tablet 750 mg=3 tab, PO, Bedtime, 0 Refill(s) Start Date: 02/03/18 Stop Date: 02/03/18 Status: Discontinued Depakote 250 mg oral enteric coated tablet 750 mg=3 tab, PO, Bedtime, # 90 tab, 4 Refill(s), Pharmacy: [facility] [id number] Start Date: 02/03/18 Status: Ordered lisinopril 5 mg oral tablet 5 mg=1 tab, PO, Daily, # 30 tab, 4 Refill(s), Pharmacy: [facility] [id number] Start Date: 02/03/18 Status: Ordered Triumeq 600 mg-50 mg-300 mg oral tablet 1 tab, PO, Daily, 0 Refill(s) Start Date: 02/03/18 Status: Ordered Valtrex 1 g oral tablet 1 gm=1 tab, PO, Daily, 0 Refill(s) Start Date: 02/03/18 Stop Date: 02/03/18 Status: Discontinued Valtrex 1 g oral tablet 1 gm=1 tab, PO, Daily, # 30 tab, 4 Refill(s), Pharmacy: [facility] [id number] Start Date: 02/03/18 Stop Date: 02/03/19 Status: Ordered Results No data available for this section Immunizations Given and Recorded Vaccine Date Status Refusal Reason Hx influenza vaccine-unspecified 04/01/17 Recorded Procedures Procedure Date Related Diagnosis Body Site Status Carpal tunnel decompression2012 Completed 1both hands Social History Social History Type Response Substance Abuse Use: None. Exercise Exercise duration: 0. Employment/School Status: Employed. Work/School description: senior living administator. Alcohol Current, Type Liquor. Frequency: Daily. Smoking Status Never smoker; Exposure to Tobacco Smoke None; Cigarette Smoking Last 365 Days No; Reg Smoking Cessation Counseling No entered on: 02/03/18 Assessment and Plan No data available for this section
--- OUTSIDE RECORDS SUMMARY | 2019-04-09 04:06 | XMS REPORT | Summary of Care ---
Author Author [facility] Organization [facility] Address Unknown Phone Unavailable Care Team Providers Care Expert Medical Writer Name Role Phone Laurel Hemphill PCP Encounter [facility] Joann(FIN) [phone] Date(s): 04/06/19 - 04/06/19 [facility] [address] [facility] [address] [place] [address]- Discharge Disposition: Home or Self Care Attending Physician: Primo Leonardo MD Vital Signs Most recent to 1 oldest [Reference Range]: Height 180.34 cm (04/06/19 3:53 PM) Temperature Oral 98.5 DegF [96.4-99.1 DegF] (04/06/19 3:53 PM) Blood Pressure 142/83 mmHg [90-140/60-90 mmHg] *HI* (04/06/19 3:53 PM) Respiratory Rate 14 BRMIN [14-20 BRMIN] (04/06/19 3:53 PM) Peripheral Pulse 91 bpm Rate [60-100 bpm] (04/06/19 3:53 PM) Weight 67.841 kg (04/06/19 3:53 PM) Body Mass Index 20.86 m2 (04/06/19 3:53 PM) Problem List Condition Effective Dates Status Health Status Informant Bipolar Active disorder(Confirmed) Genital Active herpes(Confirmed) HIV Active disease(Confirmed) Hyperlipidemia(Confi Active rmed) Hypertension(Confirm Active ed) Insomnia(Confirmed) Active Allergies, Adverse Reactions, Alerts No Known Medication Allergies Substance Reaction Severity Status NKFA Active Medications Ambien 10 mg oral tablet 10 mg=1 tab, PO, Bedtime, PRN as needed for insomnia, # 30 tab, 1 Refill(s) Start Date: 04/06/19 Status: Ordered lisinopril 10 mg oral tablet 10 mg, PO, Daily, # 90 tab, 1 Refill(s), Pharmacy: [facility] [id number] Start Date: 04/06/19 Stop Date: 10/03/19 Status: Ordered valACYclovir 1 g oral tablet 1 gm=1 tab, PO, TID, # 30 tab, 1 Refill(s), Pharmacy: [facility] [id number] Start Date: 04/06/19 Status: Ordered Results No data available for this section Immunizations Given and Recorded Vaccine Date Status Refusal Reason Hx influenza vaccine-unspecified 04/01/17 Recorded Procedures Procedure Date Related Diagnosis Body Site Status Carpal tunnel decompression1 2012 Completed 1both hands Social History Social History Type Response Substance Abuse Use: None. Exercise Exercise duration: 0. Employment/School Status: Employed. 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 Alcohol Current, Type Liquor. Frequency: Daily. Last use: 12/26/18. Smoking Status Never smoker; Exposure to Tobacco Smoke None; Cigarette Smoking Last 365 Days No; Reg Smoking Cessation Counseling No entered on: 04/06/19 Assessment and Plan No data available for this section
--- OUTSIDE RECORDS SUMMARY | 2019-04-09 04:06 | XMS REPORT | Summary of Care ---
Author Author [facility] Organization [facility] Address Unknown Phone Unavailable Encounter GATITO David(FIN) [phone] Date(s): 05/28/18 - 05/28/18 [facility] [address] [facility] [address] [place] [address]- [phone] Discharge Disposition: Home or Self Care Attending Physician: Primo Leonardo MD Vital Signs Most recent to 1 oldest [Reference Range]: Height 180.34 cm (05/28/18 2:19 PM) Temperature Oral 98.4 DegF [96.4-99.1 DegF] (05/28/18 2:19 PM) Blood Pressure 145/87 mmHg [90-140/60-90 mmHg] *HI* (05/28/18 2:19 PM) Respiratory Rate 14 BRMIN [14-20 BRMIN] (05/28/18 2:19 PM) Peripheral Pulse 102 bpm Rate [60-100 bpm] *HI* (05/28/18 2:19 PM) Weight 60.227 kg (05/28/18 2:19 PM) Body Mass Index 18.52 m2 (05/28/18 2:19 PM) Problem List Condition Effective Dates Status Health Status Informant Bipolar Active disorder(Confirmed) Genital Active herpes(Confirmed) HIV Active disease(Confirmed) Hyperlipidemia(Confi Active rmed) Hypertension(Confirm Active ed) Insomnia(Confirmed) Active Allergies, Adverse Reactions, Alerts Substance Reaction Severity Status NKDA Active Medications Ambien 10 mg oral tablet 10 mg=1 tab, PO, Bedtime, PRN for insomnia, # 30 tab, 3 Refill(s) Start Date: 05/28/18 Stop Date: 09/22/18 Status: Discontinued lisinopril 10 mg oral tablet 10 mg=1 tab, PO, Daily, # 30 tab, 0 Refill(s), Pharmacy: [facility] [id number] Start Date: 05/28/18 Stop Date: 07/15/18 Status: Completed lisinopril 10 mg oral tablet See Instructions, # 30 tab, Refill(s) 2, TAKE ONE TABLET BY MOUTH DAILY, Pharmac y: SANJANA Vargas Start Date: 07/15/18 Stop Date: 09/22/18 Status: Discontinued Results No [...]
--- OUTSIDE RECORDS SUMMARY | 2019-04-09 04:06 | XMS REPORT | Continuity of Care Document ---
Author Author [employer] Organization Care[employer] Address Unknown Phone Unavailable Care Team Providers Care Equity Research Associate Name Role Phone [employer] Whispering [place] Unavailable Unavailable Problems Problem Status Onset Date Classification Date Reported Comments Source ABD PAIN Active 03/17/2019 [facility] STOMACH PAIN Active 01/03/2019 [facility] [employer] ALCOHOL INDUCED ACUTE PANCREATITIS WITH Active 01/03/2019 [facility] Acute psychosis 11/27/2018 11/30/2018 [facility] PSYCH/ OTHER Active 11/27/2018 [facility] Opioid dependence with withdrawal 08/31/2018 03/12/2019 [facility] Opiate withdrawal 08/22/2018 03/12/2019 [facility] WITHDRAWAL Active 08/22/2018 [facility] Bipolar disorder Active Problem 04/09/2019 [facility], [facility] Genital herpes Active Problem 04/09/2019 [facility] HIV disease Active Problem 04/09/2019 [facility] Hyperlipidemia Active Problem 04/09/2019 [facility] Hypertension Active Problem 04/09/2019 [facility] Insomnia Active Problem 04/09/2019 [facility] Bipolar disorder, unspecified 03/12/2019 [facility] Human immunodeficiency virus [HIV] disease 03/12/2019 [facility] Hyperlipidemia, unspecified 03/12/2019 [facility] Essential hypertension 03/12/2019 [facility] Other custodial drug therapy 03/12/2019 [facility] ALCOHOL INDUCED ACUTE PANCREATITIS WITH Active [employer] Medications Medication Details Route Status Patient Instructions Ordering Provider Order Date Source valACYclovir 1 g oral tablet 1 gm=1 tab, PO, TID, # 30 tab, 1 Refill(s), Pharmacy: [place] [id number] Active [facility]/06/[facility] Zolpidem tartrate 10 MG Oral Tablet [Ambien] 10 mg=1 tab, PO, Bedtime, PRN as needed for insomnia, # 30 tab, 1 Refill(s) Active 04/06/2019 [facility] lisinopril 10 mg oral tablet 10 mg, PO, Daily, # 90 tab, 1 Refill(s), Pharmacy: [place] [id number] Active 04/06/2019 [facility] Acetaminophen 300 MG / Codeine Phosphate 30 MG Oral Tablet [Tylenol with Codeine #3] 1 tab, PO, Q6H, PRN Pain, X 7 day, # 28 tab, 0 Refill(s) Active 01/06/2019 [facility] Acetaminophen 325 MG / Hydrocodone Bitartrate 5 MG Oral Tablet [Lindsay 5/325] 2 tab, Route: PO, Drug Form: TAB, Dosing Weight 66.932, kg, Q6H, PRN Pain Score 4-6, Start date: 01/06/19 12:00:00 CDT, Duration: 30 day, Stop date: 02/05/19 11:59:00 CDTNotes: (Same as: Lindsay 325/5) Do not exceed 4gm/day of acetaminophen. Inactive 01/06/2019 [facility] Lisinopril 20 mg, 1 tab, Route: PO, Drug form: TAB, Daily, Dosing Weight 66.932, kg, Start date: 01/05/19 9:00:00 CDT, Duration: 30 day, Stop date: 02/03/19 9:00:00 CDTNotes: (Same as: Prinivil, Zestril) No Longer Active 01/05/2019 [facility] meropenem 500 mg, Route: IVPB, Drug form: PDR/INJ, ABXQ6H, Dosing Weight 66.932, kg, CrCL >=50ml/min, Extended infusion, infuse over 3 hours, Start date: 01/04/19 16:00:00 CDT, Duration: 10 day, Stop date: 01/14/19 10:00:00 CDT, ABX Indication: Intra-abdomina... Inactive 01/04/2019 [facility] tramadol hydrochloride 50 MG Oral Tablet 50 mg, 1 tab, Route: PO, Drug form: TAB, Q6H, Dosing Weight 66.932, kg, Start date: 01/04/19 12:00:00 CDT, Duration: 30 day, Stop date: 02/03/19 6:00:00 CDT Inactive 01/04/2019 [facility] Dilaudid 1 mg, 1 mL, Route: IVP, Drug form: SOLN, Q4H, Dosing Weight 66.932, kg, PRN Pain Score 6-10, Start date: 01/04/19 9:51:00 CDT, Duration: 30 day, Stop date: 02/03/19 9:50:00 CDTNotes: (Same as: Dilaudid) No Longer Active 01/04/2019 [facility] Acetaminophen 325 MG / Hydrocodone Bitartrate 5 MG Oral Tablet [Lindsay 5/325] 1 tab, Route: PO, Drug Form: TAB, Dosing Weight 66.932, kg, Q6H, PRN Pain Score 4-6, Start date: 01/04/19 9:44:00 CDT, Duration: 30 day, Stop date: 02/03/19 9:43:00 CDTNotes: (Same as: Lindsay 325/5) Do not exceed 4gm/day of acetaminophen. No Longer Active 01/04/2019 [facility] cobicistat 150 MG / elvitegravir 150 MG / emtricitabine 200 MG / tenofovir alafenamide 10 MG Oral Tablet [Genvoya] 1 tab, Route: PO, Drug Form: TAB, Dosing Weight 66.932, kg, Daily, Start date: 01/04/19 9:00:00 CDT, Duration: 30 day, Stop date: 02/02/19 9:00:00 CDT No Longer Active 01/04/2019 [facility] Genvoya 150/150/200/10mg pt's own med Genvoya 150/150/200/10mg pt's own med, 1 tablet, Drug form: MISC, Route: PO, Daily, 01/04/19 9:00:00 CDT, Duration: 30 day, Stop date: 02/02/19 9:00:00 CDT No Longer Active 01/04/2019 [facility] Potassium Chloride 10 mEq, 100 mL, Route: IVPB, Drug form: INJ, Q1H, Dosing Weight 66.932, kg, Total Dose=60 meq, Start date: 01/04/19 6:00:00 CDT, Duration: 6 doses or times, Stop date: 01/04/19 11:00:00 CDT, Peripheral LineNotes: Infuse at a rate of 10 mEq/hr. (Same as: KCL) Inactive 01/04/2019 [facility] Dilaudid 0.3 mg, 0.3 mL, Route: IVP, Drug form: INJ, Q4H, Dosing Weight 66.932, kg, PRN Pain Score 6-10, Start date: 01/04/19 0:54:00 CDT, Duration: 30 day, Stop date: 02/03/19 0:53:00 CDTNotes: Same as: Dilaudid Inactive 01/04/2019 [facility] Ambien 5 mg, 1 tab, Route: PO, Drug form: TAB, ONCE, Dosing Weight 66.932, kg, Start date: 01/03/19 22:50:00 CDT, Stop date: 01/03/19 22:50:00 CDTNotes: (Same As: Ambien) Inactive 01/04/2019 [facility] Dilaudid 0.5 mg, 0.5 mL, Route: IVP, Drug form: INJ, ONCE, Dosing Weight 66.932, kg, Priority: STAT, Start date: 01/03/19 20:14:00 CDT, Stop date: 01/03/19 20:14:00 CDTNotes: Same as: Dilaudid Inactive 01/04/2019 [facility] Lisinopril 10 mg, 1 tab, Route: PO, Drug form: TAB, Daily, Dosing Weight 66.932, kg, Start date: 01/03/19 17:25:00 CDT, Duration: 30 day, Stop date: 02/02/19 9:00:00 CDTNotes: (Same as: Prinivil, Zestril) No Longer Active 01/03/2019 [facility] Seroquel 25 mg, 1 tab, Route: PO, Drug form: TAB, BID, Dosing Weight 66.932, kg, Start date: 01/03/19 17:00:00 CDT, Duration: 30 day, Stop date: 02/02/19 9:00:00 CDTNotes: (Same as: SEROquel) No Longer Active 01/03/2019 [facility] Morphine 2 mg, 1 mL, Route: IVP, Drug form: SOLN, Q4H, Dosing Weight 64.091, kg, PRN Pain Score 7-10, Start date: 01/03/19 16:11:00 CDT, Duration: 30 day, Stop date: 02/02/19 16:10:00 CDT, .. No Longer Active 01/03/2019 [facility] Hydralazine 10 mg, 0.5 mL, Route: IVP, Drug form: INJ, Q6H, Dosing Weight 66.932, kg, PRN, Start date: 01/03/19 16:11:00 CDT, Duration: 30 day, Stop date: 02/02/19 16:10:00 CDT, for HTN, SBP > 180 or DBP > 110Notes: (Same as: Apresoline) Push over 5 minutes No Longer Active 01/03/2019 [facility] Bentyl 20 mg=1 cap, PO, QID, PRN Abdominal cramping, # 40 cap, 0 Refill(s) No Longer Active 01/03/2019 [facility] quetiapine 25 MG Oral Tablet [Seroquel] 25 mg=1 tab, PO, BID, 0 Refill(s) Active 01/03/2019 [facility] Lisinopril 10 mg, PO, Daily, 0 Refill(s) Active 01/03/2019 [facility] Zolpidem tartrate 10 MG Oral Tablet [Ambien] 10 mg=1 tab, PO, Bedtime, 0 Refill(s) Active 01/03/2019 [facility] Flagyl 500 mg, 100 mL, Route: IVPB, Drug form: INJ, ABXQ8H, Dosing Weight 64.091, kg, Start date: 01/03/19 15:00:00 CDT, Duration: 10 day, Stop date: 01/13/19 7:00:00 CDT, ABX Indication: Intra-abdominal InfectionNotes: (Same as: Flagyl) Avoid alcohol. No Longer Active 01/03/2019 [facility] Ciprofloxacin 400 mg, 200 mL, Route: IVPB, Drug form: INJ, [id number], Dosing Weight 64.091, kg, Start date: 01/03/19 14:00:00 CDT, Duration: 10 day, Stop date: 01/13/19 2:00:00 CDT, ABX Indication: Intra-abdominal I nfectionNotes: Do not refrigerate No Longer Active 01/03/2019 [place] Calcium Gluconate 2 gm, 20 mL, Route: IVPB, PRN, Dosing Weight 64.091, kg, PRN Abnormal Lab Result, For NON-ICU Patients Only., Start date: 01/03/19 13:43:00 CDT, Duration: 30 day, Stop date: 02/02/19 13:42:00 CDTNotes: WASTE: F/P - Sink; E - Municipal Trash Bin No Longer Active 01/03/2019 [place] Magnesium Oxide 800 mg, 2 tab, Route: PO, Drug form: TAB, PRN, Dosing Weight 64.091, kg, PRN Abnormal Lab Result, For NON-ICU Patients Only., Start date: 01/03/19 13:43:00 CDT, Duration: 30 day, Stop date: 02/02/19 13:42:00 CDTNotes: (Same as: Mag-Ox 400) Magnesium oxide [id number] elemental magnesium Dose=____mg magnesium oxide (___mg elemental magnesium) No Longer Active 01/03/2019 [place] Magnesium Sulfate 2 gm, 50 mL, Route: IVPB, Drug form: INJ, PRN, Dosing Weight 64.091, kg, PRN Abnormal Lab Result, For NON-ICU Patients Only., Start date: 01/03/19 13:43:00 CDT, Duration: 30 day, Stop date: 02/02/19 13:42:00 CDTNotes: WASTE: F/P - Sink; E - Municipal Trash Bin No Longer Active 01/03/2019 [place] sodium phosphate 15 mmol, 5 mL, Route: IVPB, PRN, Dosing Weight 64.091, kg, PRN Abnormal Lab Result, For NON-ICU Patients Only., Start date: 01/03/19 13:43:00 CDT, Duration: 30 day, Stop date: 02/02/19 13:42:00 CDTNotes: Infuse over 4 hour. Do not infuse phosphorous concurrently in the same line as TPN or IVF that contains calcium. For double lumen central lines, phosphorous may be infused in a separate lumen from TPN. No Longer Active 01/03/2019 [place] potassium phosphate 30 mmol, 10 mL, Route: IVPB, PRN, Dosing Weight 64.091, kg, PRN Abnormal Lab Result, For NON-ICU Patients Only., Start date: 01/03/19 13:43:00 CDT, Duration: 30 day, Stop date: 02/02/19 13:42:00 CDTN otes: (Same as: K Phosphate.) Do not infuse phosphorous concurrently in the same line as TPN or IVF that contains calcium. For double lumen central lines, phosphorous may be infused in a separate lumen from TPN. 1 mMol phoshate has 1.47 mEq potassium Infuse over 4 hours No Longer Active 01/03/2019 [place] Potassium Chloride 20 mEq, 1 tab, Route: PO, Drug form: ERTAB, PRN, Dosing Weight 64.091, kg, PRN Abnormal Lab Result, For NON-ICU Patients Only, Start date: 01/03/19 13:43:00 CDT, Duration: 30 day, Stop date: 02/02/19 13:42:00 CDTNotes: (Same as: K-Dur 20) "Do Not Crush" Give with food and full glass of water For patients unable to swallow tablet, dissolve in one half glass of water. Allow about 2 minutes for the tablets to disintegrate. Stir before giving to prepare slurry and administer. Please exclude Patients with feeding tube less than 14 Citizen [place] ([place], J-tube etc) and pediatric and patients. No Longer Active 01/03/2019 [facility] potassium phosphate-sodium phosphate 250 mg-280 mg-160 mg oral powder for reconstitution 2 pkt, Route: PO, Drug Form: PDR/REC, Dosing Weight 64.091, kg, PRN, PRN Abnormal Lab Result, For NON-ICU Patients Only, Start date: 01/03/19 13:43:00 CDT, Duration: 30 day, Stop date: 02/02/19 13:42:00 CDTNotes: (Same as: Phos-NaK) Each 1.5 gm pkt has 250mg phosphorous. Mix w/2.5oz water and stir. No Longer Active 01/03/2019 [place] Morphine 2 mg, 1 mL, Route: IVP, Drug form: SOLN, Q6H, Dosing Weight 64.091, kg, PRN Pain Score 7-10, Start date: 01/03/19 13:42:00 CDT, Duration: 30 day, Stop date: 02/02/19 13:41:00 CDT, .. Inactive 01/03/2019 [facility] tramadol hydrochloride 50 MG Oral Tablet 50 mg, 1 tab, Route: PO, Drug form: TAB, Q6H, Dosing Weight 64.091, kg, PRN Pain Score 4-6, Start date: 01/03/19 13:42:00 CDT, Duration: 30 day, Stop date: 02/02/19 13:41:00 CDTNotes: Not to exceed 400mg/day. (Same As: Ultram) No Longer Active 01/03/2019 [facility] Lactated Ringers IV 1,000 mL 1,000 mL, Rate: 125 ml/hr, Infuse over: 8 hr, Route: IV, Dosing Weight 66.932 kg, Total Volume: 1,000, Start date: 01/03/19 13:41:00 CDT, Duration: 30 day, Stop date: 02/02/19 13:40:00 CDT, 1.83, m2 No Longer Active 01/03/2019 [facility] Acetaminophen 650 mg, 2 tab, Route: PO, Drug form: TAB, Q4H, Dosing Weight 64.091, kg, PRN Pain 1-3/Temp > 100.4 F, Start date: 01/03/19 13:41:00 CDT, Duration: 30 day, Stop date: 02/02/19 13:40:00 CDTNotes: Do not exceed 4 gm/day. (Same as: Tylenol) No Longer Active 01/03/2019 [facility] Albuterol 0.833 MG/ML / Ipratropium [place] 0.167 MG/ML Inhalant Solution [DuoNeb] 3 ml, Route: NEB, Drug Form: SOLN, Dosing Weight 64.091, kg, PRN, PRN Respiratory Protocol, Start date: 01/03/19 13:41:00 CDT, Duration: 30 day, Stop date: 02/02/19 13:40:00 CDTNotes: (Same as: Duoneb) No Longer Active 01/03/2019 [facility] Ondansetron 4 mg, 2 mL, Route: IVP, Drug form: INJ, Q8H, Dosing Weight 64.091, kg, PRN Nausea & Vomiting, Start date: 01/03/19 13:41:00 CDT, Duration: 30 day, Stop date: 02/02/19 13:40:00 CDTNotes: (Same as: Zofran) MEDICATION WASTE Product Size: 4 mg Product Wasted: ___ mg No Longer Active 01/03/2019 [facility] Glucagon 1 mg, Route: IM, Drug form: PDR/INJ, PRN, Dosing Weight 64.091, kg, PRN Blood Glucose Results, Start date: 01/03/19 13:41:00 CDT, Duration: 30 day, Stop date: 02/02/19 13:40:00 CDT No Longer Active 01/03/2019 [facility] Dextrose 50% Syringe 12.5 gm, 25 mL, Route: IVP, Drug Form: INJ, Dosing Weight 64.091, kg, PRN, PRN Blood Glucose Results, Start date: 01/03/19 13:41:00 CDT, Duration: 30 day, Stop date: 02/02/19 13:40:00 CDT No Longer Active 01/03/2019 [facility] Dilaudid 0.5 mg, Route: IVP, ONCE, Dosing Weight 64.091, kg, Priority: STAT, Start date: 01/03/19 11:00:00 CDT, Stop date: 01/03/19 11:00:00 CDT Inactive 01/03/2019 [facility] Reglan 10 mg, Route: IVP, Drug form: INJ, ONCE, Dosing Weight 64.091, kg, Priority: STAT, Start date: 01/03/19 10:46:00 CDT, Stop date: 01/03/19 10:46:00 CDT Inactive 01/03/2019 [facility] Zofran 4 mg, Route: IVP, Drug form: INJ, ONCE, Dosing Weight 64.091, kg, Priority: STAT, Start date: 01/03/19 9:03:00 CDT, Stop date: 01/03/19 9:03:00 CDT Inactive 01/03/2019 [facility] NS (Bolus) IV 1,000 mL, 2,000 ml/hr, Infuse Over: 0.5 hr, Route: IV, ONCE, Priority: STAT, Dosing Weight 64.091 kg, Start date: 01/03/19 9:03:00 CDT, Stop date: 01/03/19 9:03:00 CDT Inactive 01/03/2019 [facility] Morphine 4 mg, Route: IVP, ONCE, Dosing Weight 64.091, kg, Priority: STAT, Start date: 01/03/19 9:02:00 CDT, Stop date: 01/03/19 9:02:00 CDT Inactive 01/03/2019 [facility] Saline Flush 0.9% 10 mL, Route: IVP, Drug Form: INJ, Dosing Weight 64.091, kg, PRN, PRN Line Flush, Start date: 01/03/19 8:24:00 CDT, Duration: 30 day, Stop date: 02/02/19 8:23:00 CDTNotes: preservative free. No Longer Active 01/03/2019 [facility] quetiapine 25 MG Oral Tablet [Seroquel] 25 mg=1 tab, PO, BID, # 20 tab, 0 Refill(s) Active 11/27/2018 [facility] Dicyclomine Hydrochloride 20 MG Oral Tablet [Bentyl] 20 mg=1 tab, PO, QID, PRN abdominal pain, # 20 tab, 0 Refill(s) Active 11/27/2018 [facility] Benadryl 50 mg, 1 mL, Route: IVP, Drug form: INJ, ONCE, Dosing Weight 70.455, kg, Priority: STAT, Start date: 11/27/18 8:13:00 CDT, Stop date: 11/27/18 8:13:00 CDTNotes: (Same as: Benadryl) Inactive 11/27/2018 [facility] Ativan 2 mg, Route: IVP, Drug form: INJ, ONCE, Dosing Weight 70.455, kg, Priority: STAT, Start date: 11/27/18 6:57:00 CDT, Stop date: 11/27/18 6:57:00 CDT Inactive 11/27/2018 [facility] Geodon 10 mg, Route: IM, ONCE, Dosing Weight 70.455, kg, Priority: STAT, Start date: 11/27/18 6:04:00 CDT, Stop date: 11/27/18 6:04:00 CDT Inactive 11/27/2018 [facility] Geodon 10 mg, Route: IM, ONCE, Dosing Weight 70.455, kg, Priority: STAT, Start date: 11/27/18 5:23:00 CDT, Stop date: 11/27/18 5:23:00 CDT Inactive 11/27/2018 [facility] Haldol 5 mg, Route: IM, ONCE, Dosing Weight 70.455, kg, Priority: STAT, Start date: 11/27/18 4:38:00 CDT, Stop date: 11/27/18 4:38:00 CDT Inactive 11/27/2018 [facility] Zolpidem tartrate 10 MG Oral Tablet [Ambien] 10 mg=1 tab, PO, Bedtime, PRN for insomnia, X 30 day, # 30 tab, 0 Refill(s) Active 09/22/2018 [facility] valacyclovir 1000 MG Oral Tablet [Valtrex] 1 gm=1 tab, PO, Daily, X 30 day, # 30 tab, 0 Refill(s), Pharmacy: [place] [id number] Active 09/22/2018 [facility] lisinopril 10 mg oral tablet See Instructions, TAKE ONE TABLET BY MOUTH DAILY, # 90 tab, 1 Refill(s), Pharmacy: [place] [id number] Active 09/22/2018 [facility] Alprazolam 1 MG Oral Tablet 1 mg=1 tab, PO, Daily, PRN ANIXETY/PANIC, X 14 day, # 15 tab, 0 Refill(s) Active 09/22/2018 [facility] Alprazolam 2 MG Oral Tablet 2 mg=1 tab, PO, TID, PRN Anxiety, 0 Refill(s) Inactive 09/22/2018 [facility] cobicistat 150 MG / elvitegravir 150 MG / emtricitabine 200 MG / tenofovir alafenamide 10 MG Oral Tablet [Genvoya] 1 tab, PO, Daily, # 30 tab, 0 Refill(s) Active 09/22/2018 [facility] Ondansetron 4 MG Oral Tablet [Zofran] 4 mg=1 tab, PO, BID, # 10 tab, 0 Refill(s) No Longer Active 08/23/2018 [facility] Clonidine Hydrochloride 0.1 MG Oral Tablet 1-2 tab, PO, BID, PRN Agitation, # 15 tab, 0 Refill(s) No Longer Active 08/23/2018 [facility] Clonidine 0.2 mg, 2 tab, Route: PO, Drug form: TAB, ONCE, Dosing Weight 65.909, kg, Priority: STAT, Start date: 08/22/18 22:27:00 STOCK PATCHER, Stop date: 08/22/18 22:27:00 CSTNotes: (Same As: Catapres) Inactive 08/23/2018 [facility] Sodium Chloride 0.9% (Bolus) IV 1,000 mL, 1000 ml/hr, Infuse Over: 1 hr, Route: IV, 1,000, Drug form: INJ, ONCE, Priority: STAT, Dosing Weight 65.909 kg, Start date: 08/22/18 22:25:00 STOCK PATCHER, Stop date: 08/22/18 22:25:00 STOCK PATCHER Inactive 08/23/2018 [facility] Ondansetron 4 mg, 1 tab, Route: PO, Drug form: TABDIS, ONCE, Dosing Weight 65.909, kg, Priority: STAT, Start date: 08/22/18 22:15:00 STOCK PATCHER, Stop date: 08/22/18 22:15:00 CSTNotes: (Same as: Zofran ODT) Inactive 08/23/2018 [facility] lisinopril 10 mg oral tablet See Instructions, # 30 tab, Refill(s) 2, TAKE ONE TABLET BY MOUTH DAILY, Pharmacy: [place] [id number] No Longer Active 07/15/2018 [facility] Zolpidem tartrate 10 MG Oral Tablet [Ambien] 10 mg=1 tab, PO, Bedtime, PRN for insomnia, # 30 tab, 3 Refill(s) No Longer Active 05/28/2018 [facility] lisinopril 10 mg oral tablet 10 mg=1 tab, PO, Daily, # 30 tab, 0 Refill(s), Pharmacy: [place] [id number] No Longer Active 05/28/2018 [facility] lisinopril 5 mg oral tablet 5 mg=1 tab, PO, Daily, # 30 tab, 4 Refill(s), Pharmacy: [place] [id number] Active 02/03/2018 [facility] Zolpidem tartrate 10 MG Oral Tablet [Ambien] 10 mg=1 tab, PO, Bedtime, PRN for insomnia, # 30 tab, 3 Refill(s) Active 02/03/2018 [facility] valacyclovir 1000 MG Oral Tablet [Valtrex] 1 gm=1 tab, PO, Daily, # 30 tab, 4 Refill(s), Pharmacy: [place] [id number] Active 02/03/2018 [facility] Divalproex Sodium 250 MG Enteric Coated Tablet [Depakote] 750 mg=3 tab, PO, Bedtime, # 90 tab, 4 Refill(s), Pharmacy: [place] [id number] Active 02/03/2018 [facility] abacavir 600 MG / dolutegravir 50 MG / Lamivudine 300 MG Oral Tablet [Triumeq] 1 tab, PO, Daily, 0 Refill(s) Active 02/03/2018 [facility] Divalproex Sodium 250 MG Enteric Coated Tablet [Depakote] 750 mg=3 tab, PO, Bedtime, 0 Refill(s) Inactive 02/03/2018 [facility] valacyclovir 1000 MG Oral Tablet [Valtrex] 1 gm=1 tab, PO, Daily, 0 Refill(s) Inactive 02/03/2018 [facility] Zolpidem tartrate 10 MG Oral Tablet [Ambien] 10 mg=1 tab, PO, Bedtime, PRN for insomnia, 0 Refill(s) Inactive 02/03/2018 [facility] Allergies, Adverse Reactions, Alerts Substance Category Reaction Severity Reaction type Status Date Reported Comments Source No Known Medication Allergies Assertion Drug allergy Medical [facility] NKFA Assertion Food allergy Active [facility] Immunizations Immunization Date Given Site Status Last Updated Comments Source Hx influenza vaccine-unspecified 04/01/2017 completed [facility] Results Order Name Results Value Reference Range Date Interpretation Comments Source CHEM PANEL Lipase Lvl 54 73 - 393 03/17/2019 [facility] CHEM PANEL Magnesium Lvl 1.9 1.8 - 2.4 01/06/2019 [facility] CHEM PANEL eGFR 148 01/06/2019 Result Comment: The eGFR is calculated using the [...] from the National Kidney Disease Education Program (NKDEP) which additionally recommends that when the eGFR is used in patients with extremes of body mass index for purposes of drug dosing, the eGFR should be multiplied by the estimated BMI. [facility] CHEM PANEL Sodium Lvl 142 135 - 145 01/06/2019 [facility] CHEM PANEL Creatinine Lvl 0.72 0.50 - 1.40 01/06/2019 [facility] CHEM PANEL BUN 4 7 - 22 01/06/2019 [facility] CHEM PANEL Glucose Lvl 62 70 - 99 01/06/2019 [facility] CHEM PANEL Calcium Lvl 9.0 8.5 - 10.5 01/06/2019 [facility] CHEM PANEL AGAP 12.4 10.0 - 20.0 01/06/2019 [facility] CHEM PANEL CO2 29 24 - 32 01/06/2019 [facility] CHEM PANEL Potassium Lvl 3.4 3.5 - 5.1 01/06/2019 [facility] CHEM PANEL Chloride Lvl 104 95 - 109 01/06/2019 [facility] HEMATOLOGY Lymphocytes 23.2 20.0 - 40.0 01/06/2019 [facility] HEMATOLOGY Segs 55.3 45.0 - 75.0 01/06/2019 [facility] HEMATOLOGY Monocytes 19.6 2.0 - 12.0 01/06/2019 [facility] HEMATOLOGY Basophils 1.0 0.0 - 1.0 01/06/2019 [facility] HEMATOLOGY Eosinophils 0.9 0.0 - 4.0 01/06/2019 [facility] HEMATOLOGY Neutrophils # 2.5 1.5 - 8.1 01/06/2019 [facility] HEMATOLOGY Lymphocytes # 1.0 1.0 - 5.5 01/06/2019 [facility] HEMATOLOGY Monocytes # 0.9 0.0 - 0.8 01/06/2019 [facility] HEMATOLOGY MCHC 34.9 32.0 - 36.0 01/06/2019 [facility] HEMATOLOGY RDW 13.9 11.5 - 14.5 01/06/2019 [facility] HEMATOLOGY MPV 6.8 7.4 - 10.4 01/06/2019 [facility] HEMATOLOGY Platelet 786 133 - 450 01/06/2019 [facility] HEMATOLOGY Hgb 12.0 14.0 - 18.0 01/06/2019 [facility] HEMATOLOGY WBC 4.5 3.7 - 10.4 01/06/2019 [facility] HEMATOLOGY RBC 3.75 4.70 - 6.10 01/06/2019 [facility] HEMATOLOGY Hct 34.5 42.0 - 54.0 01/06/2019 [facility] HEMATOLOGY MCV 92.0 80.0 - 94.0 01/06/2019 [facility] HEMATOLOGY MCH 32.1 27.0 - 31.0 01/06/2019 [facility] CHEM PANEL eGFR 151 01/05/2019 Result Comment: The eGFR is calculated using the [...] from the National Kidney Disease Education Program (NKDEP) which additionally recommends that when the eGFR is used in patients with extremes of body mass index for purposes of drug dosing, the eGFR should be multiplied by the estimated BMI. [place] CHEM PANEL BUN 4 7 - 22 01/05/2019 [facility] [facility] Creatinine Lvl 0.68 0.50 - 1.40 01/05/2019 [place] CHEM PANEL Calcium Lvl 9.0 8.5 - 10.5 01/05/2019 [place] CHEM PANEL CO2 30 24 - 32 01/05/2019 [place] CHEM PANEL Glucose Lvl 92 70 - 99 01/05/2019 [place] CHEM PANEL Chloride Lvl 102 95 - 109 01/05/2019 [place] CHEM PANEL Potassium Lvl 3.6 3.5 - 5.1 01/05/2019 [facility] CHEM PANEL Sodium Lvl 140 135 - 145 01/05/2019 [facility] CHEM PANEL AGAP 11.6 10.0 - 20.0 01/05/2019 [facility] CHEM PANEL Magnesium Lvl 1.9 1.8 - 2.4 01/05/2019 [facility] HEMATOLOGY Segs 68.4 45.0 - 75.0 01/05/2019 [facility] HEMATOLOGY Monocytes 15.9 2.0 - 12.0 01/05/2019 [facility] HEMATOLOGY Lymphocytes 14.9 20.0 - 40.0 01/05/2019 [facility] HEMATOLOGY Eosinophils 0.5 0.0 - 4.0 01/05/2019 [facility] HEMATOLOGY Neutrophils # 4.2 1.5 - 8.1 01/05/2019 [facility] HEMATOLOGY Basophils 0.3 0.0 - 1.0 01/05/2019 [facility] HEMATOLOGY Monocytes # 1.0 0.0 - 0.8 01/05/2019 [facility] HEMATOLOGY Lymphocytes # 0.9 1.0 - 5.5 01/05/2019 [facility] HEMATOLOGY Platelet 655 133 - 450 01/05/2019 [facility] HEMATOLOGY RDW 13.7 11.5 - 14.5 01/05/2019 [facility] HEMATOLOGY MPV 6.7 7.4 - 10.4 01/05/2019 [facility] HEMATOLOGY Hct 33.2 42.0 - 54.0 01/05/2019 [facility] HEMATOLOGY Hgb 11.9 14.0 - 18.0 01/05/2019 [facility] HEMATOLOGY MCH 32.6 27.0 - 31.0 01/05/2019 [facility] HEMATOLOGY MCV 91.3 80.0 - 94.0 01/05/2019 [facility] HEMATOLOGY MCHC 35.7 32.0 - 36.0 01/05/2019 [facility] HEMATOLOGY WBC 6.2 3.7 - 10.4 01/05/2019 [facility] HEMATOLOGY RBC 3.64 4.70 - 6.10 01/05/2019 [facility] ELECTROLYTES Potassium Lvl 3.3 3.5 - 5.1 01/05/2019 [facility] CHEM PANEL Magnesium Lvl 1.9 1.8 - 2.4 01/04/2019 [facility] CHEM PANEL eGFR 147 01/04/2019 Result Comment: The eGFR is calculated using the [...] from the National Kidney Disease Education Program (NKDEP) which additionally recommends that when the eGFR is used in patients with extremes of body mass index for purposes of drug dosing, the eGFR should be multiplied by the estimated BMI. [facility] CHEM PANEL AGAP 12.9 10.0 - 20.0 01/04/2019 [facility] CHEM PANEL CO2 29 24 - 32 01/04/2019 [facility] CHEM PANEL Chloride Lvl 103 95 - 109 01/04/2019 [facility] CHEM PANEL BUN 2 7 - 22 01/04/2019 [facility] CHEM PANEL Creatinine Lvl 0.72 0.50 - 1.40 01/04/2019 [facility] CHEM PANEL Glucose Lvl 87 70 - 99 01/04/2019 [facility] CHEM PANEL Calcium Lvl 8.6 8.5 - 10.5 01/04/2019 [facility] CHEM PANEL Sodium Lvl 142 135 - 145 01/04/2019 [facility] HEMATOLOGY Platelet 523 133 - 450 01/04/2019 [facility] HEMATOLOGY RDW 13.9 11.5 - 14.5 01/04/2019 [facility] HEMATOLOGY MPV 6.6 7.4 - 10.4 01/04/2019 [facility] HEMATOLOGY RBC 3.46 4.70 - 6.10 01/04/2019 [facility] HEMATOLOGY WBC 6.7 3.7 - 10.4 01/04/2019 [facility] HEMATOLOGY MCH 32.2 27.0 - 31.0 01/04/2019 [facility] HEMATOLOGY MCV 91.3 80.0 - 94.0 01/04/2019 [facility] HEMATOLOGY Hct 31.6 42.0 - 54.0 01/04/2019 [facility] HEMATOLOGY Hgb 11.2 14.0 - 18.0 01/04/2019 [facility] HEMATOLOGY MCHC 35.3 32.0 - 36.0 01/04/2019 [facility] HEMATOLOGY Monocytes # 1.0 0.0 - 0.8 01/04/2019 [facility] HEMATOLOGY Lymphocytes # 0.9 1.0 - 5.5 01/04/2019 [facility] HEMATOLOGY Neutrophils # 4.8 1.5 - 8.1 01/04/2019 [facility] HEMATOLOGY Basophils 0.2 0.0 - 1.0 01/04/2019 [facility] HEMATOLOGY Segs 71.4 45.0 - 75.0 01/04/2019 [facility] HEMATOLOGY Monocytes 14.5 2.0 - 12.0 01/04/2019 [facility] HEMATOLOGY Lymphocytes 13.2 20.0 - 40.0 01/04/2019 [facility] HEMATOLOGY Eosinophils 0.7 0.0 - 4.0 01/04/2019 [facility] CARDIAC ENZYMES Troponin-I 0.03 0.00 - 0.40 01/03/2019 [facility] CHEM PANEL Globulin 4.8 2.7 - 4.2 01/03/2019 [facility] CHEM PANEL A/G Ratio 0.7 0.7 - 1.6 01/03/2019 [facility] CHEM PANEL B/C Ratio 4 6 - 25 01/03/2019 [facility] CHEM PANEL Alk Phos 40 39 - 136 01/03/2019 [facility] CHEM PANEL AST 34 0 - 37 01/03/2019 [facility] CHEM PANEL Bili Total 0.6 0.2 - 1.3 01/03/2019 [facility] CHEM PANEL Total Protein 8.0 6.4 - 8.4 01/03/2019 [facility] CHEM PANEL Albumin Lvl 3.2 3.5 - 5.0 01/03/2019 [facility] CHEM PANEL ALT 22 0 - 65 01/03/2019 [facility] CHEM PANEL Lipase Lvl 166 73 - 393 01/03/2019 [facility] CHEM PANEL Lactic Acid Lvl 1.0 0.5 - 2.2 01/03/2019 [facility] HEMATOLOGY Eosinophils # 0.1 0.0 - 0.5 01/03/2019 [facility] URINE AND STOOL UA pH 8.0 5.0 - 8.0 01/03/2019 [facility] URINE AND STOOL UA Protein Negative mg/dL Negative mg/dL 01/03/2019 [facility] URINE AND STOOL UA Glucose Negative mg/dL Negative mg/dL 01/03/2019 [place] URINE AND STOOL UA Ketones Trace mg/dL Negative mg/dL 01/03/2019 [place] URINE AND STOOL UA Spec Grav 1.003 <=1.030 01/03/2019 [place] URINE AND STOOL UA Leuk Est Negative (01/03/19 8:43 AM) Negative [facility]/03/2019 [facility] Nitrite Negative (01/03/19 8:43 AM) Negative 01/03/2019 [place] URINE AND STOOL UA Sq Epi Occasional /LPF Few /LPF 01/03/2019 [place] URINE AND STOOL UA Bili Negative *NA* (01/03/19 8:43 AM) Negative 01/03/2019 [place] URINE AND STOOL UA Blood Negative (01/03/19 8:43 AM) Negative 01/03/2019 [facility] UA Turbidity Clear (01/03/19 8:43 AM) Clear 01/03/2019 [place] URINE AND STOOL UA WBC <1 0 - 5 01/03/2019 [place] URINE AND STOOL UA Bacteria Occasional /HPF None Seen /HPF 01/03/2019 [facility] URINE AND STOOL UA RBC 1 0 - 2 01/03/2019 [facility] URINE AND STOOL UA Color STRAW 01/03/2019 [facility] URINE AND STOOL UA Urobilinogen <=1.0 mg/dL 0.1 - 1.0 01/03/2019 [facility] DRUG SCREEN UDS Note See Note (11/27/18 4:19 AM) 11/27/2018 [facility] DRUG SCREEN U Amph Scr Negative *NA* (11/27/18 4:19 AM) Negative 11/27/2018 [facility] DRUG SCREEN U Cocaine Scr Negative *NA* (11/27/18 4:19 AM) Negative 11/27/2018 [facility] DRUG SCREEN U Benzodiaz Scr Negative *NA* (11/27/18 4:19 AM) Negative 11/27/2018 [facility] DRUG SCREEN U Tanya Scr Positive *ABN* (11/27/18 4:19 AM) Negative 11/27/2018 [facility] DRUG SCREEN U Opiate Scr Positive *ABN* (11/27/18 4:19 AM) Negative 11/27/2018 [facility] DRUG SCREEN U Cannab Scr Negative *NA* (11/27/18 4:19 AM) Negative 11/27/2018 [facility] DRUG SCREEN U Phencyclidine Scr Negative *NA* (11/27/18 4:19 AM) Negative 11/27/2018 [facility] URINE AND STOOL UA Nitrite Negative (11/27/18 4:19 AM) Negative 11/27/2018 [facility] URINE AND STOOL UA Urobilinogen <=1.0 mg/dL 0.1 - 1.0 11/27/2018 [facility] URINE AND STOOL UA Blood Moderate *ABN* (11/27/18 4:19 AM) Negative 11/27/2018 [facility] URINE AND STOOL UA Leuk Est Negative (11/27/18 4:19 AM) Negative 11/27/2018 [facility] URINE AND STOOL UA Glucose Negative *NA* (11/27/18 4:19 AM) Negative 11/27/2018 [facility] URINE AND STOOL UA Ketones Negative 11/27/2018 [facility] URINE AND STOOL UA Bili Negative *NA* (11/27/18 4:19 AM) Negative 11/27/2018 [facility] URINE AND STOOL UA RBC <1 0 - 2 11/27/2018 [facility] URINE AND STOOL UA WBC 2 0 - 5 11/27/2018 [facility] URINE AND STOOL UA Sq Epi None Seen (11/27/18 4:19 AM) Few 11/27/2018 [facility] URINE AND STOOL UA Hyal Cast 12 0 - 2 11/27/2018 [facility] URINE AND STOOL UA Mucus Few /LPF None Seen /LPF 11/27/2018 [facility] URINE AND STOOL UA Color Yellow *NA* (11/27/18 4:19 AM) Yellow 11/27/2018 [facility] URINE AND STOOL UA pH 5.0 5.0 - 8.0 11/27/2018 [facility] URINE AND STOOL UA Spec Grav 1.018 <=1.030 11/27/2018 [facility] URINE AND STOOL UA Protein Negative (11/27/18 4:19 AM) Negative 11/27/2018 [facility] URINE AND STOOL UA Turbidity Clear (11/27/18 4:19 AM) Clear 11/27/2018 [facility] CARDIAC ENZYMES Total CK 139 12 - 191 11/27/2018 [facility] CARDIAC ENZYMES Troponin-I <0.02 0.00 - 0.40 11/27/2018 [facility] CHEM PANEL A/G Ratio 1.1 0.7 - 1.6 11/27/2018 [facility] CHEM PANEL Globulin 4.3 2.7 - 4.2 11/27/2018 [facility] CHEM PANEL B/C Ratio 13 6 - 25 11/27/2018 [facility] CHEM PANEL AGAP 12.4 10.0 - 20.0 11/27/2018 [facility] CHEM PANEL eGFR 104 11/27/2018 Result Comment: The eGFR is calculated using the [...] from the National Kidney Disease Education Program (NKDEP) which additionally recommends that when the eGFR is used in patients with extremes of body mass index for purposes of drug dosing, the eGFR should be multiplied by the estimated BMI. [facility] CHEM PANEL Bili Total 0.4 0.2 - 1.3 11/27/2018 [facility] CHEM PANEL Chloride Lvl 99 95 - 109 11/27/2018 [facility] CHEM PANEL Potassium Lvl 3.4 3.5 - 5.1 11/27/2018 [facility] CHEM PANEL Total Protein 9.2 6.4 - 8.4 11/27/2018 [facility] CHEM PANEL Calcium Lvl 9.5 8.5 - 10.5 11/27/2018 [facility] CHEM PANEL CO2 31 24 - 32 11/27/2018 [facility] CHEM PANEL ALT 18 0 - 65 11/27/2018 [facility] CHEM PANEL Albumin Lvl 4.9 3.5 - 5.0 11/27/2018 [facility] CHEM PANEL AST 15 0 - 37 11/27/2018 [facility] CHEM PANEL Alk Phos 55 39 - 136 11/27/2018 [facility] CHEM PANEL Glucose Lvl 127 70 - 99 11/27/2018 [facility] CHEM PANEL BUN 15 7 - 22 11/27/2018 [facility] CHEM PANEL Creatinine Lvl 1.12 0.50 - 1.40 11/27/2018 [facility] CHEM PANEL Sodium Lvl 139 135 - 145 11/27/2018 [facility] HEMATOLOGY RDW 13.1 11.5 - 14.5 11/27/2018 [facility] HEMATOLOGY MCHC 34.1 32.0 - 36.0 11/27/2018 [facility] HEMATOLOGY MPV 6.8 7.4 - 10.4 11/27/2018 [facility] HEMATOLOGY Platelet 338 133 - 450 11/27/2018 [facility] HEMATOLOGY Hgb 15.3 14.0 - 18.0 11/27/2018 [facility] HEMATOLOGY RBC 4.79 4.70 - 6.10 11/27/2018 [facility] HEMATOLOGY MCV 94.0 80.0 - 94.0 11/27/2018 [facility] HEMATOLOGY Hct 45.0 42.0 - 54.0 11/27/2018 [facility] HEMATOLOGY MCH 32.0 27.0 - 31.0 11/27/2018 [facility] HEMATOLOGY WBC 8.1 3.7 - 10.4 11/27/2018 [facility] HEMATOLOGY Lymphocytes # 0.8 1.0 - 5.5 11/27/2018 [facility] HEMATOLOGY Neutrophils # 6.7 1.5 - 8.1 11/27/2018 [facility] HEMATOLOGY Monocytes # 0.6 0.0 - 0.8 11/27/2018 [facility] HEMATOLOGY Basophils 0.2 0.0 - 1.0 11/27/2018 [facility] HEMATOLOGY Lymphocytes 9.7 20.0 - 40.0 11/27/2018 [facility] HEMATOLOGY Segs 82.7 45.0 - 75.0 11/27/2018 [facility] HEMATOLOGY Eosinophils 0.1 0.0 - 4.0 11/27/2018 [facility] HEMATOLOGY Monocytes 7.3 2.0 - 12.0 11/27/2018 [facility] TOXICOLOGY Etoh (%) <0.003 11/27/2018 [facility] TOXICOLOGY Ethanol Lvl <3 11/27/2018 [facility] TOXICOLOGY Acetaminoph Lvl <2 (11/27/18 3:55 AM) 10 - 20 11/27/2018 [facility] TOXICOLOGY Salicylate Lvl <1.7 0.0 - 30.0 11/27/2018 [facility] Pathology Reports No Data Provided for This Section Diagnostic Reports Report Value Date Source ED Abdomen/Pelvis IV contrast only CT PROCEDURE: CT ABDOMEN AND PELVIS WITH CONTRAST Clinical Indication: Abdominal pain. Recent diagnosis of pancreatitis. Comparison: None. TECHNIQUE: Helical imaging was performed from the diaphragm through the pubic symphysis with multiplanar reformations obtained. DOSE: CT imaging performed at this location utilizes radiation dose optimization techniques which include one or more of the followin) Automated exposure control; 2) Adjustment of the mA and/or kV according to patient size; 3) Use of iterative reconstruction techniques. DLP: 352 mGy-cm IV CONTRAST: 100 mL Omnipaque-300 GI CONTRAST: None. FINDINGS: LOWER CHEST: Small bilateral pleural effusions present. PERITONEUM: There is no free abdominal air. Trace free fluid in the upper abdomen and pelvis. RETROPERITONEUM: No adenopathy. The aorta is normal in caliber. SOLID ORGANS: Liver, gallbladder, spleen, bilateral adrenal glands, and bilateral kidneys all appear normal. Pancreas is heterogeneous with focal areas of poorly circumscribed hypodensity including the pancreatic head as well as in the pancreatic body. Moderate peripancreatic fatty injection/free fluid is seen without a drainable organized fluid collection able to be appreciated. No pancreatic ductal dilatation identified. Few surrounding subcentimeter short axis lymph nodes also seen in this area. PELVIS: Bladder is filled with fluid. BOWELS/APPENDIX: No abnormally dilated small or large bowel loops. Appendix is normal in caliber with probable appendicolith within. MUSCULOSKELETAL: No suspicious osseous abnormality identified. IMPRESSION: 1. Findings consistent with acute pancreatitis without organized drainable fluid collection appreciated. Poorly circumscribed hypodense areas are seen within the pancreatic head and body which could represent pancreatic necrosis. Developing pseudocyst or abscess can also be considered. 2. Trace ascites. 3. Small bilateral pleural effusions. SL: [id number] 01/03/2019 [facility] Consultation Notes No Data Provided for This Section Discharge Summaries No Data Provided for This Section History and Physicals No Data Provided for This Section Vital Signs Vital Sign Value Date Comments Source BMI Calculated 20.86 04/06/2019 [facility] Weight 67.841 04/06/2019 [facility] Height 180.34 cm 04/06/2019 [facility] Heart Rate 91 04/06/2019 [facility] Temperature Oral (F) 98.5 F 04/06/2019 [facility] Respitory Rate 14 04/06/[facility] Systolic (mm Hg) 142 04/06/[facility] Diastolic (mm Hg) 83 04/06/2019 [facility] Systolic (mm Hg) 133 01/06/2019 [facility] Diastolic (mm Hg) 83 01/06/2019 [facility] Heart Rate 86 01/06/2019 [facility] Temperature Oral (F) 98.1 F 01/06/2019 [facility] Respitory Rate 17 01/06/2019 [facility] Systolic (mm Hg) 151 01/06/2019 [facility] Diastolic (mm Hg) 96 01/06/2019 [facility] Heart Rate 95 01/06/2019 [facility] Temperature Oral (F) 98.5 F 01/06/2019 [facility] Respitory Rate 17 01/06/2019 [facility] Respitory Rate 16 01/06/2019 [facility] Temperature Oral (F) 98.2 F 01/06/2019 [facility] Systolic (mm Hg) 144 01/06/2019 [facility] Diastolic (mm Hg) 90 01/06/2019 [facility] Heart Rate 93 01/06/2019 [facility] Height 180.34 cm 01/03/2019 [facility] Weight 66.932 01/03/2019 [facility] BMI Calculated 20.58 01/03/2019 [facility] Height 180.34 cm 01/03/2019 [facility] BMI Calculated 19.71 01/03/2019 [facility] Weight 64.091 01/03/2019 [facility] Temperature Oral (F) 98.2 F 11/28/2018 [facility] Systolic (mm Hg) 156 11/28/2018 [facility] Diastolic (mm Hg) 82 11/28/2018 [facility] Respitory Rate 18 11/28/2018 [facility] Respitory Rate 19 11/27/2018 [facility] Systolic (mm Hg) 144 11/27/2018 [facility] Diastolic (mm Hg) 72 11/27/2018 [facility] Temperature Oral (F) 98 F 11/27/2018 [facility] Respitory Rate 18 11/27/2018 [facility] Temperature Oral (F) 98 F 11/27/2018 [facility] Systolic (mm Hg) 136 11/27/2018 [facility] Diastolic (mm Hg) 78 11/27/2018 [facility] Heart Rate 102 11/27/2018 [facility] Heart Rate 92 11/27/2018 [facility] Height 172.72 cm 11/27/2018 [facility] BMI Calculated 23.62 11/27/2018 [facility] Weight 70.455 11/27/2018 [facility] BMI Calculated 20.04 09/22/[facility] Height 180.34 cm 09/22/2018 [facility] Weight 65.17 09/22/2018 [facility] Heart Rate 111 09/22/2018 [facility] Temperature Oral (F) 98.3 F 09/22/2018 [facility] Systolic (mm Hg) 134 09/22/2018 [facility] Diastolic (mm Hg) 93 09/22/2018 [facility] Temperature Oral (F) 98.2 F 08/23/2018 [facility] Heart Rate 118 08/23/2018 [facility] Respitory Rate 17 08/23/2018 [facility] Systolic (mm Hg) 139 08/23/2018 [facility] Diastolic (mm Hg) 89 08/23/2018 [facility] Systolic (mm Hg) 124 08/23/2018 [facility] Diastolic (mm Hg) 73 08/23/2018 [facility] Respitory Rate 17 08/23/2018 [facility] Heart Rate 127 08/23/2018 [facility] Weight 65.909 08/23/2018 [facility] Height 180.34 cm 08/23/2018 [facility] BMI Calculated 20.27 08/23/2018 [facility] Heart Rate 122 08/23/2018 [facility] Respitory Rate 18 08/23/2018 [facility] Temperature Oral (F) 98 F 08/23/2018 [facility] Systolic (mm Hg) 158 08/23/2018 [facility] Diastolic (mm Hg) 97 08/23/2018 [facility] Height 180.34 cm 05/28/2018 [facility] Weight 60.227 05/28/2018 [facility] Heart Rate 102 05/28/2018 [facility] Respitory Rate 14 05/28/2018 [facility] Temperature Oral (F) 98.4 F 05/28/2018 [facility] BMI Calculated 18.52 05/28/2018 [facility] Systolic (mm Hg) 145 05/28/2018 [facility] Diastolic (mm Hg) 87 05/28/2018 [facility] BMI Calculated 18.92 02/03/2018 [facility] Weight 61.534 02/03/2018 [facility] Height 180.34 cm 02/03/2018 [facility] Respitory Rate 14 02/03/2018 [facility] Heart Rate 90 02/03/2018 [facility] Systolic (mm Hg) 151 02/03/2018 [facility] Diastolic (mm Hg) 93 02/03/2018 [facility] Temperature Oral (F) 98.1 F 02/03/2018 [facility] Encounters Location Location Details Encounter Type Encounter Number Reason For Visit Attending Provider ADM Date DC Date Status Source Outpatient [id number] PRIMO SIM 02/03/2018 [facility] Outpatient [id number] Primo Sim 02/03/2018 02/04/2018 [facility] Outpatient [id number] PRIMO SIM 05/28/2018 [facility] Outpatient [id number] Primo Sim 05/28/2018 05/29/2018 [facility] Emergency [id number] Taiwo Sweeney 08/23/2018 08/23/2018 [facility] Outpatient [id number] ALLEY MCDERMOTT 09/22/2018 [facility] [place] [facility] [id number] [facility]23[facility] [place] Phone Message [id number] 09/22/2018 09/24/2018 [facility] [place] Phone Message [id number] 09/23/2018 09/25/2018 [facility] Outpatient [id number] PRIMO SIM 09/29/2018 Active [facility] Ambulatory Pre-Reg [id number] Primo Sim 09/29/2018 09/29/2018 [facility] [id number] [facility] Active [facility] Emergency [id number] Kaur Gold 11/27/2018 11/28/2018 [facility] [place] Phone Message [id number] 12/24/2018 12/26/2018 [facility] Inpatient [id number] Emili Mott 01/03/2019 01/06/2019 [facility] Outpatient [id number] Non Physician 03/17/2019 03/18/2019 [facility] Outpatient [id number] Zhflaco Malissa 03/31/2019 Active [facility] Outpatient [id number] Zhflaco Malissa 04/06/2019 Active [facility] Outpatient [id number] Zhflaco Malissa 04/06/2019 04/07/2019 [facility] Procedures Procedure Code Date Perfomer Comments Source Carpal tunnel decompression<sup>1</sup> [id number] 09/01/2012 [facility] Carpal tunnel decompression<sup>1</sup> [id number] 09/01/2012 [facility] Carpal tunnel decompression<sup>1</sup> [id number] 09/01/2012 both hands [facility] Carpal tunnel decompression<sup>1</sup> [id number] 09/01/2012 both hands [facility] Assessment and Plan Assessment and Plan Date Source Extracted from:Title: Discharge Summary * Author: Emili Mott MD Date: 01/06/19 Discharge Plan Discharge Summary Plan Discharge Status: stable. Discharge instructions given: to patient. Discharge disposition: discharge to home self care. Prescriptions: continue same medications, written and given to patient. Diagnosis Acute hypokalemia (APP91-FD E87.6, Working, Medical). 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 Anemia of chronic disease (QHK88-MF D63.8, Working, Medical). HIV disease (KWH11-NK B20, Working, Medical). Pancreatic necrosis (ASH98-SD K86.89, Working, Medical). Course Improving. Education and Follow-up Counseled: patient. Extracted from:Title: [facility] HOSP Progress Note * Author: Emili Mott [...] discharge the next day or so Extracted from:Title: Clinical Document Author: Kenny Sunshine MD Date: 01/03/19 INFECTIOUS DISEASES CONSULTATION NOTE Kenny Sunshine M.D. Attending: Kenny Aguilar MD Service: Internal Medicine Code status: Full Code Reason for Admission: ALCOHOL INDUCED ACUTE PANCREATITIS WITH UNINFECTED NECR Working DRG: Isolation: No Isolation/Standard Precautions Consulting Physicians: Felix Peng MD Office: Service: Gastroenterology Kenny Sunshine MD Office: Service: Infectious Disease HPI: 28-year-old -[place] with known past medical history significant for HIV as well as alcoholic pancreatitis who presented to [facility] with ongoing pain he was recently admitted at [facility]. He was just discharged from [...] Hypertension Grandparent (Maternal Grandmother): Hypertension Allergies (1) Active Reaction No Known Medication Allergies None documented SOCIAL HISTORY: Employment/School Details: Status: Employed. Work/School description: fpc administator. Alcohol Details: Current, Type Liquor. Frequency: [...] PO BID 01/03/19 ciprofloxacin 400 mg IVPB [id number] 200 ml/hr 01/03/19 lisinopril 10 mg PO Daily 01/03/19 metroNIDAZOLE (Flagyl) 500 mg IVPB [id number] 200 ml/hr 01/04/19 non-formulary (Genvoya 150/150/200/10mg pt's own med) PO Daily VITAL SIGNS: Vitals Tmp(F) Pulse BP RR SpO2 FIO2 01/03 22:40 98.8 80 167/91 16 98 --- 01/03 20:31 ---- --- ----- -- --- 21% 01/03 19:34 98.5 83 168/96 16 99 --- 01/03 15:55 98.6 65 180/105 17 98 --- 01/03 15:47 ---- --- ----- 17 100 21% 24 Hr Tmax: 98.8F (37.11c) at 01/03 22:40 Vital Signs are the last 5 in the [...] LABS: Labs (Last four charted values) WBC 6.7 (JANUARY 03) Hgb L 11.6 (JANUARY 03) Hct L 32.4 (JANUARY 03) Plt 394 (JANUARY 03) Na 140 (JANUARY 03) K L 3.4 (JANUARY 03) CO2 29 (JANUARY 03) Cl 104 (JANUARY 03) Cr 0.75 (JANUARY 03) BUN L 3 (JANUARY 03) Glucose Random 92 (JANUARY 03) Ca 8.7 (JANUARY 03) Troponin 0.03 (JANUARY 03) CULTURES: DATE/SOURCE/RESULT/ SENSITIVITIES: IMAGING: ASSESSMENT AND [...] to take care of this patient. Extracted from:Title: History and Physical Author: Kenny Aguilar MD [...] gastroenterology as well for a possibility of Alyson induced pancreatitis? Pain control as needed Antiemetics as needed Medication reconciliation DVT prophylaxis: Heparin subcutaneous Disposition: Likely 2 midnights or more 01/06/2019 [facility] Plan of Care No Data Provided for This Section Social History Social History Date Source Social History TypeResponse Substance Abuse Use: None. Exercise Exercise duration: 0. Employment/School Status: Employed. Work/School description: fpc administator. Alcohol Current, Type Liquor. Frequency: Daily. Last use: 12/26/18. Smoking Status Never smoker; Exposure to Tobacco Smoke None; Cigarette Smoking Last 365 Days No; Reg Smoking Cessation Counseling No entered on: 04/06/19 01/03/2019 [facility] Social History TypeResponse Substance Abuse Use: None. Exercise Exercise duration: 0. Employment/School Status: Employed. Work/School description: fpc administator. Alcohol Current, Type Liquor. Frequency: Daily. Last use: 12/26/18. Smoking Status Never smoker; Exposure to Tobacco Smoke None; Cigarette Smoking Last 365 Days No; Reg Smoking Cessation Counseling No entered on: 01/03/19 01/03/2019 [facility] Social History TypeResponse Substance Abuse Use: None. Exercise Exercise duration: 0. Employment/School Status: Employed. Work/School description: fpc administator. Alcohol Current, Type Liquor. Frequency: Daily. Last use: 12/26/18. Smoking Status Never smoker; Exposure to Tobacco Smoke None; Cigarette Smoking Last 365 Days No; Reg Smoking Cessation Counseling No entered on: 01/03/19 01/03/2019 [facility] Social History TypeResponse Substance Abuse Use: None. Exercise Exercise duration: 0. Employment/School Status: Employed. Work/School description: fpc administator. Alcohol Current, Type Liquor. Frequency: Daily. Smoking Status Never smoker; Exposure to Tobacco Smoke None; Cigarette Smoking Last 365 Days No; Reg Smoking Cessation Counseling No entered on: 11/27/18 05/28/2018 [facility] Family History No Data Provided for This Section Advance Directives No Data Provided for This Section Functional Status No Data Provided for This Section
--- OUTSIDE RECORDS SUMMARY | 2019-04-09 04:06 | XMS REPORT | Summary of Care ---
Author Author [facility] Primary Care [facility] [place] Address Unknown Phone Unavailable Encounter HQ Encntr_alidell(FIN) [id number] Date(s): 12/24/18 - 12/25/18 [facility] Primary [facility] [place] [address] [place] [address] [place] [address]- [phone] Vital Signs No data available for this section Problem List Condition Effective Dates Status Health Status Informant Bipolar Active disorder(Confirmed) Genital Active herpes(Confirmed) HIV Active disease(Confirmed) Hyperlipidemia(Confi Active rmed) Hypertension(Confirm Active ed) Insomnia(Confirmed) Active Allergies, Adverse Reactions, Alerts No Known Medication Allergies Medications No data available for this section Results No data available for this section Immunizations Given and Recorded Vaccine Date Status Refusal Reason Hx influenza vaccine-unspecified 04/01/17 Recorded Procedures Procedure Date Related Diagnosis Body Site Status Carpal tunnel decompression2012 Completed 1both hands Social History Social History Type Response Substance Abuse Use: None. Exercise Exercise duration: 0. Employment/School Status: Employed. Work/School description: snf administator. Alcohol Current, Type Liquor. Frequency: Daily. Smoking Status Never smoker; Exposure to Tobacco Smoke None; Cigarette Smoking Last 365 Days No; Reg Smoking Cessation Counseling No entered on: 11/27/18 Assessment and Plan No data available for this section
--- OUTSIDE RECORDS SUMMARY | 2019-04-09 04:06 | XMS REPORT | Summary of Care ---
Author Author [facility] Primary Care [facility] [place] Address Unknown Phone Unavailable Encounter [facility] Encntr_alidell(FIN) [id number] Date(s): 09/22/18 - 09/23/18 [facility] Primary [facility] [place] [address] [place] [phone] Vital Signs No data available for this section Problem List Condition Effective Dates Status Health Status Informant Bipolar Active disorder(Confirmed) Genital Active herpes(Confirmed) HIV Active disease(Confirmed) Hyperlipidemia(Confi Active rmed) Hypertension(Confirm Active ed) Insomnia(Confirmed) Active Allergies, Adverse Reactions, Alerts Substance Reaction Severity Status NKDA Active Medications No data available for this section [...] Reg Smoking Cessation Counseling No entered on: 09/22/18 Assessment and Plan No data available for this section
--- OUTSIDE RECORDS SUMMARY | 2019-04-09 04:07 | XMS REPORT | Summary of Care ---
Author Author [facility] Primary Care [facility] Primary [facility] [place] Address Unknown Phone Unavailable Encounter [facility] Encntr_alidell(FIN) [id number] Date(s): 09/23/18 - 09/24/18 [facility] Primary [facility] [place] [address] [address], [place] [phone] Vital Signs No data available for this [...]
--- OUTSIDE RECORDS SUMMARY | 2019-04-09 04:07 | XMS REPORT | Summary of Care ---
Author Author [facility] Organization [facility] Address Unknown Phone Unavailable Encounter HQ Encntr_alias(FIN) [id number] Date(s): 09/29/18 - 09/29/18 [facility] [address], [address] [place] [address]- [phone] Attending Physician: Primo Leonardo MD Vital Signs No data available for [...]
--- OUTSIDE RECORDS SUMMARY | 2019-04-09 04:07 | XMS REPORT | Summary of Care ---
Author Author [facility] Primary Care [facility] [place] Address Unknown Phone Unavailable Encounter GATITO David(FIN) [id number] Date(s): 09/22/18 - 09/22/18 [facility] Primary [place] [address] [address] [place] [address]- [phone] Discharge Disposition: Home or Self Care Attending Physician: Laurel Hemphill DO Vital Signs Most recent to 1 oldest [Reference Range]: Height 180.34 cm (09/22/18 11:39 AM) Temperature Oral 98.3 DegF [96.4-99.1 DegF] (09/22/18 11:39 AM) Blood Pressure 134/93 mmHg [90-140/60-90 mmHg] (09/22/18 11:39 AM) Peripheral Pulse 111 bpm Rate [60-100 bpm] *HI* (09/22/18 11:39 AM) Weight 65.17 kg (09/22/18 11:39 AM) Body Mass Index 20.04 m2 (09/22/18 11:39 AM) Problem List Condition Effective Dates Status Health Status Informant Bipolar Active disorder(Confirmed) Genital Active herpes(Confirmed) HIV Active disease(Confirmed) Hyperlipidemia(Confi Active rmed) Hypertension(Confirm Active ed) Insomnia(Confirmed) Active Allergies, Adverse Reactions, Alerts Substance Reaction Severity Status NKDA Active Medications ALPRAZOLam 1 mg oral tablet 1 mg=1 tab, PO, Daily, PRN ANIXETY/PANIC, X 14 day, # 15 tab, 0 Refill(s) Start Date: 09/22/18 Stop Date: 10/06/18 Status: Ordered ALPRAZOLam 2 mg oral tablet 2 mg=1 tab, PO, TID, PRN Anxiety, 0 Refill(s) Start Date: 09/22/18 Stop Date: 09/22/18 Status: Discontinued Ambien 10 mg oral tablet 10 mg=1 tab, PO, Bedtime, PRN for insomnia, X 30 day, # 30 tab, 0 Refill(s) Start Date: 09/22/18 Stop Date: 10/22/18 Status: Ordered Genvoya 150 mg-150 mg-200 mg-10 mg oral tablet 1 tab, PO, Daily, # 30 tab, 0 Refill(s) Start Date: 09/22/18 Status: Ordered lisinopril 10 mg oral tablet See Instructions, TAKE ONE TABLET BY MOUTH DAILY, # 90 tab, 1 Refill(s), Pharmac y: [facility] [id number] Start Date: 09/22/18 Status: Ordered Valtrex 1 g oral tablet 1 gm=1 tab, PO, Daily, X 30 day, # 30 tab, 0 Refill(s), Pharmacy: [facility] [id number] Start Date: 09/22/18 Stop Date: 10/22/18 Status: Ordered Results No data available for this section Immunizations Given and Recorded Vaccine Date Status Refusal Reason Hx influenza vaccine-unspecified 04/01/17 Recorded Procedures Procedure Date Related Diagnosis Body Site Status Carpal tunnel decompression2012 Completed 1both hands Social History Social History Type Response Substance Abuse Use: None. Exercise Exercise duration: 0. Employment/School Status: Employed. Work/School description: long-term administator. Alcohol Current, Type Liquor. Frequency: Daily. Smoking Status Never smoker; Exposure to Tobacco Smoke None; Cigarette Smoking Last 365 Days No; Reg Smoking Cessation Counseling No entered on: 09/22/18 Assessment and Plan No data available for this section
[2019-04-09] MEDS ORDERED: ONDANSETRON HCL INJ 2MG/ML 2ML 2 MG/ML VIAL IV STA (04:19)
[2019-04-09] MEDS ORDERED: KETOROLAC TROMETHAMINE 30 MG/ML VIAL IV STA (04:19)
[2019-04-09] MEDS ORDERED: SODIUM CHLORIDE 0.9% 1000ML 1,000 ML IV STA (04:19)
[2019-04-09 04:46] LABS: BASOPHILS % 0.2 % (0.0-1.0); EOSINOPHILS % 0.5 % (0.0-6.0); HEMATOCRIT 36.9 % (38.2-49.6); HEMOGLOBIN 12.5 g/dL (14.0-18.0); LYMPHOCYTES # (AUTO) 1.8 (1.0-3.2); LYMPHOCYTES % 42.4 % (18.0-39.1); MEAN CORPUSCULAR HEMOGLOBIN 30.6 pg (28-32); MEAN CORPUSCULAR HGB CONC 33.9 g/dL (31-35); MEAN CORPUSCULAR VOLUME 90.2 fL (81-99); MONOCYTES # (AUTO) 0.4 (0.2-0.8); MONOCYTES % 8.8 % (4.4-11.3); NEUTROPHILS % 47.9 % (38.7-80.0); PLATELET COUNT 301 x10e3/uL (140-360); RED BLOOD COUNT 4.09 x10e6/uL (4.3-5.7)
[2019-04-09 05:03] LABS: ALANINE AMINOTRANSFERASE 13 IU/L (0-55); ALBUMIN 3.9 g/dL (3.5-5.0); ALBUMIN/GLOBULIN RATIO 1.2 (0.8-2.0); ALKALINE PHOSPHATASE 55 IU/L (40-150); ANION GAP 12.8 mmol/L (8-16); BLOOD UREA NITROGEN 14 mg/dL (7-26); BUN/CREATININE RATIO 15 (6-25); CALCIUM 9.1 mg/dL (8.4-10.2); CARBON DIOXIDE 26 mmol/L (22-29); CHLORIDE 106 mmol/L (98-107); CREATININE, SERUM 0.91 mg/dL (0.72-1.25); EST GLOMERULAR FILTRATION RATE > 60 ML/MIN (60-); GLUCOSE 87 mg/dL (74-118); POTASSIUM 3.8 mmol/L (3.5-5.1); SODIUM 141 mmol/L (136-145)
[2019-04-09 05:04] LABS: AMYLASE 110 U/L (25-125); LIPASE 13 U/L (8-78)
[2019-04-09 05:08] LABS: BILIRUBIN,URINE NEGATIVE (NEGATIVE); CLARITY,URINE CLEAR (CLEAR); COLOR,URINE YELLOW (YELLOW); KETONES,URINE NEGATIVE (NEGATIVE); LEUKOCYTE ESTERASE ,URINE NEGATIVE (NEGATIVE); NITRITE,URINE NEGATIVE (NEGATIVE); PROTEIN,URINE DIPSTICK NEGATIVE (NEGATIVE); URINE UROBILINOGEN 0.2 mg/dL (0.2 - 1)
[2019-04-09 05:22] LABS: AMPHETAMINES SCREEN,URINE NEGATIVE (NEGATIVE); BENZODIAZEPINES SCREEN,URINE POSITIVE (NEGATIVE); PHENCYCLIDINE SCREEN,URINE NEGATIVE (NEGATIVE)
[2019-04-09 05:23] LABS: BACTERIA,URINE FEW /HPF; EPITHELIAL CELLS,URINE FEW /LPF; WBC,URINE (MAN) 0-5 /HPF (0-5)
[2019-04-09 05:41] VITALS: BP 140/98
== END 2019-04-09 05:44 | disposition home or self-care (01) ==
LOC: ER 04:03
DX: R10.84 Generalized abdominal pain (principal); F10.14 Alcohol abuse with alcohol-induced mood disorder; Z21 Asymptomatic human immunodeficiency virus [HIV] infection status; Z91.14 Patient's other noncompliance with medication regimen
CPT/HCPCS: 36415; 80053; 80307; 81001; 82150; 83690; 85025; 99283; J1885; J2405; J7030